=== PATIENT | female | born 1960 | race Caucasian/White ===

== ENCOUNTER 2024-07-09 02:05 | Observation (INO) | payer BC, SELFPAY ==
[2024-07-09] VITALS (24 sets, daily range): BP systolic 84–150; BP diastolic 38–98; PULSE 69–105; RESP 13–93; TEMP 36.7–37.1; O2SAT 89–100; BMI 24.3
--- NOTE | 2024-07-09 02:11 | EDNOTE_ITS ---
ED Dizzyness RME/HPI General Chief Complaint: Dizziness Stated Complaint: NAUSEA/VOMITING Time Seen by Provider: 07/09/24 02:11 Arrival date/time: 07/09/24 02:05 RME / HPI RME / HPI Narrative: Dr. Tolbert?s Main ED Evaluation: 63yo female FIOR from home presents to the ED for a chief complaint of dizziness x 1999. Per EMS, patient just got back from [place] at 1999 and has been having motion sickness ever since, reporting it w orsens with movement. Patient endorses having persistent N/V. She has had a decreased appetite for the last one day. She denies any difficulty speaking, difficulty ambulating, numbness, tingling or any other associated symptoms. Related Data Home Medications ?Medication ?Instructions ?Recorded ?Confirmed alprazolam 1 mg tablet 1 mg PO DAILY PRN Anxiety 07/09/24 07/09/24 buspirone 15 mg tablet 15 mg PO HS 07/09/24 07/09/24 Previous Rx's ?Medication ?Instructions ?Recorded alprazolam 0.5 mg tablet 0.5 mg PO BID PRN anxiety #6 tabs 07/10/24 scopolamine base 1 mg over 3 days 1 mg topical Q3D #24 ea 07/10/24 transdermal patch Allergies Allergy/AdvReac Type Severity Reaction Status Date / Time codeine Allergy Verified 03/23/23 08:11 Review of Systems Review of Systems Systems Reviewed: All systems reviewed, normal except as documented Past Medical History Past Medical History CARDIAC: Negative Cardiac Disorders or Congestive Heart Failure RESPIRATORY: Negative Chronic Obstructive Pulmonary Disease (COPD) or Asthma GENITOURINARY: Negative Renal Disease ENDOCRINE: Negative Diabetes Mellitus Type 1 or Diabetes Mellitus Type 2 HEMATOLOGIC: Negative Sickle Cell Disease OTHER HISTORY: Negative Blood Transfusions or Anesthesia Reactions Social History SMOKING STATUS: Unknown if ever smoked ED Exam Narrative Physical exam: GENERAL APPEARANCE: alert and oriented x 4, well-developed, well-nourished, no acute distress VITALS: All vitals were reviewed and the pulse ox is 100% on room air, which is normal according to my interpretation. HEENT: Normocephalic, atraumatic; pupils equal, round, reactive to light; EOMI;right horizontal nystagmus that worsens with positional changes; mucous membranes pink, moist; oropharynx clear NECK: Supple LUNGS: CTABL; no wheezes, no rales, no rhonchi HEART: Regular rate, regular rhythm; normal S1, S2; no murmurs ABDOMEN: non distended; normal BS; soft, no tenderness, no guarding, no rebound; no masses, no organomegaly, no hernia BACK: no CVA tenderness EXTREMITIES: atraumatic; no edema NEUROLOGIC: awake; alert and oriented x4; cranial nerves II-XII grossly intact; no focal sensory or motor deficits PSYCHIATRIC: appropriate mood and affect SKIN: warm, dry, normal color; no rashes Course Course Course Narrative: CXR is ordered for determining the etiology of chest pain. Quality Measures none Orders Category Date Time Status Transportation Security Officer STAT Care 07/09/24 02:11 Completed Continuous Pulse Oximetry ONCE Care 07/09/24 02:11 Completed EKG (ED ONLY) *Do not use* NOW Care 07/09/24 02:11 Completed EKG (ED ONLY) *Do not use* NOW Care 07/09/24 03:43 Completed EKG (ED ONLY) *Do not use* NOW Care 07/09/24 10:27 Completed Insert IV STAT Care 07/09/24 02:11 Completed EKG (ED Only) Stat Exams 07/09/24 02:11 Draft EKG (ED Only) Stat Exams 07/09/24 03:43 Ordered EKG (ED Only) Stat Exams 07/09/24 10:27 Ordered XR chest 1V portable Stat Exams 07/09/24 02:46 Completed B-Type Natriuretic Peptide Stat Lab 07/09/24 02:20 Completed CBC Stat Lab 07/09/24 02:20 Completed Comprehensive Metabolic Panel Stat Lab 07/09/24 02:20 Completed Drug Screen,Urine Stat Lab 07/10/24 04:00 Completed Lipase Stat Lab 07/09/24 02:20 Completed Magnesium Stat Lab 07/09/24 02:20 Completed Troponin I Stat Lab 07/09/24 02:20 Completed LORazepam [Ativan Inj] Med 07/09/24 02:50 Discontinued 1 mg IVP X1 ONE LORazepam [Ativan Inj] Med 07/09/24 03:17 Discontinued 1 mg IVP X1 ONE LORazepam [Ativan Inj] Med 07/09/24 10:28 Discontinued 2 mg IM X1 ONE LORazepam [Ativan Inj] Med 07/09/24 10:30 Discontinued 2 mg IVP X1 ONE Magnesium Sulfate 2 GM Ivpb [Magnesium Sulfate Ivpb] Med 07/09/24 02:46 Discontinued 2 gm in 50 ml IV X1 Meclizine HCl [Antivert] Med 07/09/24 04:23 Discontinued 50 mg PO X1 ONE Ondansetron Inj [Zofran Inj] Med 07/09/24 02:11 Discontinued 4 mg IV X1 ONE Ondansetron Inj [Zofran Inj] Med 07/09/24 08:48 Discontinued 4 mg IV X1 ONE Ondansetron Inj [Zofran Inj] Med 07/09/24 09:56 Discontinued 4 mg IV X1 ONE POTASSIUM CHL 10 mEq IVPB [Kcl Ivpb] Med 07/09/24 03:43 Discontinued 10 meq in 100 ml IV Q1H Potassium Chloride [K-Dur] Med 07/09/24 10:29 Discontinued 20 meq PO X1 ONE Potassium Chloride [K-Dur] Med 07/09/24 10:29 Discontinued 20 meq PO X1 ONE Sodium Chloride 0.9% 1000 ml [Ns] 1,000 ml Med 07/09/24 02:11 Discontinued IV 999 mls/hr Sodium Chloride 0.9% 1000 ml [Ns] 1,000 ml Med 07/09/24 10:27 Discontinued IV 999 mls/hr Vital Signs Vital signs: Vital Signs Pulse Rate 73 07/09/24 02:09 Respiratory Rate 24 H 07/09/24 02:09 Blood Pressure 150/70 H 07/09/24 02:09 Pulse Oximetry (%) 100 07/09/24 02:09 Oxygen Delivery Method Room Air 07/09/24 02:09 Dizziness MDM Narrative MDM Narrative:: Scribe Attestation: 07/09/24 Sussy Cervantes am scribing for and in the presence of Dr. Tolbert. Although the patient is actively vomiting, the patient has a QT prolongation on her EKG, so I am unable to order antiemetics. 2g of Magnesium Sulfate ordered. Will repeat EKG and re-assess. After the additional 1mg Ativan, patient's symptoms resolved. Patient given 50mg meclizine. Will continue to observe the patient. Patient data External records reviewed:: [facility] previous records (Per chart review, patient was admitted here on 03/23/23 for hypokalemia; she was noted to be in torsades DePointes during that admission. ) Clinical information provided by:: patient and EMS Social determinants that could affect healthcare access:: none Patient has the following chronic illnesses:: none How is presenting disease/condition affected by chronic disease/condition?: no chronic disease Evaluation data The following diagnostics were reviewed and interpreted by me:: lab results, radiology exam(s) and EKG tracing(s) Lab and/or radiology exams considered but not ordered:: none Interpretation Summary: WBC count is elevated at 12.5, Potassium is low at 3.0, troponin is normal, BNP is normal, Magnesium is normal, CXR shows normal cardiac silhouette, normal sharp diaphragmatic edge, no infiltrates, normal costophrenic angles, according to my interpretation. EKG done at 0230, NSR, rate of 69, frequent PVCs, Q waves in V1 and V2, QRS: 13, QTc: 468, no STEMI, according to my interpretation. Repeat EKG done at 0441, NSR, rate of 74, normal axis, Q waves in aVL, V1, and V2, no ectopy, QRS: 123, QTc: 448, no acute ischemia, according to my interpretation. Medications / Prescriptions Medications or Prescriptions considered but not ordered:: none Medication administrations:: Medication Administration History Discontinued Medications Acetaminophen (Acetaminophen 325 Mg Tablet) 650 mg PO Q6H PRN PRN Reason: Fever >101.5 or pain 1-3 Stop: 08/08/24 13:52 Last Admin: 07/10/24 10:21 Dose: 650 mg Documented By: ISIDRO Buspirone HCl (Buspirone Hcl 5 Mg Tablet) 15 mg PO QDAY [facility] Stop: 08/09/24 08:59 Last Admin: 07/10/24 08:29 Dose: 15 mg Documented By: ISIDRO Enoxaparin Sodium (Enoxaparin Sod Inj 40 Mg/0.4 Ml Syringe) 40 mg SC QDAY [facility] Stop: 07/24/24 08:59 Last Admin: 07/10/24 08:30 Dose: Not Given Documented By: SG Non-Admin Reason: Patient Refused Sodium Chloride (Ns) 1,000 mls @ 999 mls/hr IV .Q1H1M ONE Stop: 07/09/24 03:11 Last Infusion: 07/09/24 03:24 Dose: Infused Documented By: Admin: 07/09/24 02:21 Dose: 999 mls/hr Documented By: TC Magnesium Sulfate (Magnesium Sulfate Ivpb) 2 gm in 50 mls @ 25 mls/hr IV X1 ONE Stop: 07/09/24 04:45 Last Infusion: 07/09/24 04:47 Dose: Infused Documented By: Admin: 07/09/24 02:51 Dose: 25 mls/hr Documented By: ROXIE Potassium Chloride (Kcl Ivpb) 10 meq in 100 mls @ 100 mls/hr IV Q1H JANET Stop: 07/09/24 05:42 Last Infusion: 07/09/24 07:04 Dose: Infused Documented By: Admin: 07/09/24 05:40 Dose: 100 mls/hr Documented By: Infusion: 07/09/24 05:39 Dose: Infused Documented By: Admin: 07/09/24 04:42 Dose: 100 mls/hr Documented By: ROXIE Sodium Chloride (Ns) 1,000 mls @ 999 mls/hr IV .Q1H1M ONE Stop: 07/09/24 11:27 Last Infusion: 07/09/24 13:00 Dose: Infused Documented By: Admin: 07/09/24 10:59 Dose: 999 mls/hr Documented By: NEREIDA Lactated Ringer's (Lactated Ringers) 1,000 mls @ 75 mls/hr IV .[id number] [facility] Stop: 07/10/24 13:59 Last Admin: 07/10/24 05:35 Dose: 75 mls/hr Documented By: Infusion: 07/10/24 04:10 Dose: Infused Documented By: Admin: 07/09/24 14:50 Dose: 75 mls/hr Documented By: ISIDRO Lorazepam (Lorazepam 2 Mg/Ml Vial) 1 mg IVP X1 ONE Stop: 07/09/24 02:51 Last Admin: 07/09/24 02:54 Dose: 1 mg Documented By: ROXIE Lorazepam (Lorazepam 2 Mg/Ml Vial) 1 mg IVP X1 ONE Stop: 07/09/24 03:18 Last Admin: 07/09/24 03:20 Dose: 1 mg Documented By: LASHELL Lorazepam (Lorazepam 2 Mg/Ml Vial) 2 mg IM X1 ONE Stop: 07/09/24 10:29 Last Admin: 07/09/24 10:29 Dose: Not Given Documented By: NEREIDA Non-Admin Reason: Cancelled by Provider Lorazepam (Lorazepam 2 Mg/Ml Vial) 2 mg IVP X1 ONE Stop: 07/09/24 10:31 Last Admin: 07/09/24 11:02 Dose: 2 mg Documented By: GM Lorazepam (Lorazepam 0.5 Mg Tablet) 0.5 mg PO X1 ONE Stop: 07/09/24 21:31 Last Admin: 07/09/24 21:55 Dose: 0.5 mg Documented By: MRAbhay Meclizine HCl (Meclizine Hcl 25 Mg Tablet) 50 mg PO X1 ONE Stop: 07/09/24 04:24 Last Admin: 07/09/24 04:42 Dose: 50 mg Documented By: ROXIE Melatonin (Melatonin 3 Mg Tablet) 3 mg PO HS [facility] Stop: 08/08/24 20:59 Last Admin: 07/10/24 02:18 Dose: Not Given Documented By: SEVERO Non-Admin Reason: Patient Refused Ondansetron HCl (Ondansetron Inj 2 Mg/Ml Inj 2 Ml) 4 mg IV X1 ONE; Protocol Stop: 07/09/24 02:12 Last Admin: 07/09/24 02:20 Dose: 4 mg Documented By: LASHELL Ondansetron HCl (Ondansetron Inj 2 Mg/Ml Inj 2 Ml) 4 mg IV X1 ONE; Protocol Stop: 07/09/24 08:49 Last Admin: 07/09/24 08:51 Dose: 4 mg Documented By: NEREIDA Ondansetron HCl (Ondansetron Inj 2 Mg/Ml Inj 2 Ml) 4 mg IV X1 ONE; Protocol Stop: 07/09/24 09:57 Last Admin: 07/09/24 10:00 Dose: 4 mg Documented By: NEREIDA Pantoprazole Sodium (Pantoprazole Inj 40 Mg Vial) 40 mg IV QDAY [facility] Stop: 08/09/24 08:59 Last Admin: 07/10/24 08:29 Dose: 40 mg Documented By: SG Potassium Chloride (Potassium Chloride 20 Meq Tabcr) 20 meq PO X1 ONE Stop: 07/09/24 10:30 Last Admin: 07/09/24 10:31 Dose: Not Given Documented By: GM Non-Admin Reason: Duplicate Medication on eMAR Potassium Chloride (Potassium Chloride 20 Meq Tabcr) 20 meq PO X1 ONE Stop: 07/09/24 10:30 Last Admin: 07/09/24 11:02 Dose: 20 meq Documented By: GM Potassium Phos/Sodium Phos (Naph,[facility] 1 Packet (1.5 Gm)) 1 packet PO X1 ONE Stop: 07/10/24 08:12 Last Admin: 07/10/24 08:29 Dose: 1 packet Documented By: SG Scopolamine (Scopolamine 1 Mg Tdsy) 1 mg TOP Q3D JANET Stop: 08/08/24 13:59 Last Admin: 07/09/24 14:50 Dose: 1 mg Documented By: SG see above Consultations Consultation(s) initiated? (list below): No Diagnosis Dizziness Differential Diagnosis: other (peripheral vertigo, central vertigo, electrolyte abnormality, arrhythmia) Most likely diagnosis given after review of the tests above:: final dx pending at sign out. Admission Indicated Admission indicated?: not indicated Admission Request Was there a request for admission?: No Disposition Plan Disposition Plan: other (specify) (Signed out to Dr. Ramos at 0600 pending re- evaluation.) Critical Care Time Critical Care Time Critical Care Time: Yes Total Critical Care Time (min.): 45 Attestation: The high probability of sudden, clinically significant deterioration in the patient?s condition required the highest level of my preparedness to intervene urgently. The services I provided to this patient were to treat and/or prevent clinically significant deterioration. Services included the following: chart data review, reviewing nursing notes and/or old charts, documentation time, environmental remediation consultant collaboration regarding findings and treatment options, medication orders and management, direct patient care, vital sign assessments and ordering, interpreting and reviewing diagnostic studies and lab tests. Aggregate critical care time includes only time during which I was engaged in work directly related to the patient?s care, as described above, whether at bedside or elsewhere in the Emergency Department. It did not include time spent performing other reported procedures or the services of residents, students, nurses or physician assistants. Discharge Plan Plan Patient Disposition: Admit Acute Care w/in Hospital Problem List Clinical Impression: Food poisoning, Vertigo Patient/Caregiver Discharge Instructions Discharge Activity: activity as tolerated
--- NOTE | 2024-07-09 02:11 | EKG_ITS ---
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: : 1960 Requested By: James Augustin Order Number: [id number] Reading MD: James Augustin Measurements Intervals [place] Rate: 69 P: 72 SC: 168 QRS: 62 QRSD: 130 T: -9 QT: 448 QTc: 483 Interpretive Statements SINUS RHYTHM WITH FREQUENT VENTRICULAR PREMATURE COMPLEXES SEPTAL MYOCARDIAL INFARCTION , OF INDETERMINATE AGE [40+ ms Q WAVE IN V1/V2] MODERATE T-WAVE ABNORMALITY, CONSIDER INFERIOR ISCHEMIA [-0.1+ mV T WAVE IN II/aVF] Compared to ECG 03/24/2023 17:35:09 Ventricular premature complex(es) now present Myocardial infarct finding still present T-wave abnormality still present Possible ischemia still present /store/S0/[id number]/ecg/[id number].pdf
[2024-07-09] MEDS: ONDANSETRON INJ 2 MG/ML INJ 2 ML 4 MG IV ×3 (02:20→10:00)
[2024-07-09] MEDS: SODIUM CHLORIDE 0.9% 1000 ML 1,000 ML 999 ML IV ×2 (02:21→10:59)
--- NOTE | 2024-07-09 02:46 | XR_ITS ---
Examination: AP chest single view Technique: AP portable upright chest single view Exam date and time: July 09, 2024 0254 hrs. Comparison 03/23/2023 Indications: Onset chest pain today. Findings: Normal heart size Lungs are clear. The osseous structures are intact The film is lordotic Impression: No pneumonia or pulmonary edema
[2024-07-09 02:49] LABS: Basophils # (Auto) 0.1 Thou/mm3 (0.0-0.2); Basophils % (Auto) 1 % (0-2.5); Eosinophils % (Auto) 0 % (0-10); Hemoglobin 13.4 g/dL (12.0-16.0); Immature Granulocytes % (Auto) 0 % (0-0); Immature Granulocytes Auto 0.05 Thou/mm3 (0.00-0.00); Lymphocytes # (Auto) 1.6 Thou/mm3 (1.0-4.8); Lymphocytes % (Auto) 13 % (10-50); Mean Corpuscular HGB Conc 33.5 g/dl (31.0-37.0); Mean Corpuscular Volume 84 fL (80-100); Monocytes # (Auto) 0.4 Thou/mm3 (0.0-0.8); Monocytes % (Auto) 3 % (0-12); Neutrophils # (Auto) 10.3 Thou/mm3 (1.8-7.7); Neutrophils % (Auto) 82 % (37-80); Nucleated Red Blood Cell % 0 /100 WBC (0); Platelet Count 237 Thou/mm3 (140-440); RDW Standard Deviation 39.6 fL (36.4-46.3); Red Blood Count 4.79 Miln/mm3 (4.00-5.20); White Blood Count 12.5 Thou/mm3 (3.6-11.0)
[2024-07-09] MEDS: Magnesium Sulfate 2 GM Ivpb 2 GM/50 ML BAG IV (02:51)
[2024-07-09] MEDS: LORazepam 2 MG/ML VIAL 1 MG IVP ×2 (02:54→03:20)
[2024-07-09 03:08] LABS: Alanine Aminotransferase 10 U/L (10-49); Albumin, Serum 4.9 gm/dL (3.4-4.8); Alkaline Phosphatase 61 U/L (46-116); Anion Gap 12 (7-16); Aspartate Amino Transferase 15 U/L (0-34); BUN/Creatinine Ratio 18 Ratio (12-20); Bilirubin,Total 0.5 mg/dL (0.3-1.2); Blood Urea Nitrogen 14 mg/dL (9-23); Calcium 9.8 mg/dL (8.3-10.6); Calcium (Corrected) 9.8 mg/dL (8.5-10.1); Chloride 107 mMol/L (98-107); Creatinine (Component) 0.8 mg/dL (0.6-1.3); Estimated Creatinine Clearance 78.8 mL/min (>60); Globulin 2.4 gm/dL (2.3-3.5); Glucose 166 mg/dL (74-106); Lipase 32 U/L (12-53); Osmolality,Calculated 287 (275-295); Sodium 142 mMol/L (136-145); Total Protein 7.3 gm/dL (5.7-8.2); Troponin I < 0.020 ng/mL (0.0-0.045); eGFR > 60 See Note
[2024-07-09 03:11] LABS: B-Type Natriuretic Peptide 44 pg/mL (0-100)
[2024-07-09] MEDS: MECLIZINE HCL 25 MG TABLET 50 MG PO (04:42)
[2024-07-09] MEDS: POTASSIUM CHL 10 mEq IVPB 10 MEQ/100 ML BAG 100 MEQ IV ×2 (04:42→05:40)
--- NOTE | 2024-07-09 07:05 | PC.NURSE ---
REPORT RECEIVED AT THIS TIME; PER REPORT, PT COMING IN FOR SEVERE N/V THAT STARTED AFTER THEIR ROAD TRIP TO THE [place]; PT HAS MOTION SICKNESS. UPON ARRIVAL, PT'S POTASSIUM WAS 3.0 SO WE CORRECTED THAT; PT ALSO HAS HX OF TORSADES SO SHE GIVEN MAGNESIUM TO PREVENT THAT EVEN THOUGH INITIAL MAG LEVELS WERE WNL; EKG DID SHOW PROLONGED SG; PT ALSO GIVEN ATIVAN FOR ANXIETY. PT BEGAN TO DESAT TO 88% ON RA AFTER ATIVAN, SO I PUT HER ON 2L OF NC, SHE''S BEEN SATTING WELL EVER SINCE. PT CONNECTED TO MONITORS AT THIS TIME.
--- NOTE | 2024-07-09 07:34 | EDNOTE_ITS ---
Emergency Room Addendum Addendum Narrative: 0600: Care assumed by previous shift provider. Past medical, surgical, social and family history reviewed. Vitals and home medications reviewed. Results and treatment plan discussed. I will assume the care of the patient at this time and will follow the patient, pending final disposition. 0800: Patient received 2 rounds of Zofran, Ativan, IV fluids, magnesium and potassium prior to my encounter. At rest she states she feels improved but has not attempted ambulation. She was not able to ambulate beyond nursing home down the ER hallway and returned to her bed with resumption of her nausea vomiting. Reviewing her labs she does have a mildly low potassium, borderline prolonged QRS and QTc. Given her persistent refractory nausea, her tendency for catastrophic electrolyte abnormalities (review of the EMR records shows her visit with me where she was admitted to the ICU with torsades de points and shock) we will admit for observation for intractable nausea and vomiting.
--- NOTE | 2024-07-09 08:38 | PC.NURSE ---
Addendum entered by Cammy Cooper RN 07/09/24 08:40: @0840- RN at bedside with pt; pt now starting to vomit; Dr. Ramos made aware pt did not pass PO challenge. Original Note: Pt ambulated to restroom independently with no issues; pt exhibited strong & steady gait. Pt given ice water for PO challenge; pt drank water at this time and denies N/V. Pt passed ambulation and PO challenge.
[2024-07-09] MEDS: LORazepam 2 MG/ML VIAL IVP (11:02)
[2024-07-09] MEDS: POTASSIUM CHLORIDE 20 mEq TABCR PO (11:02)
--- NOTE | 2024-07-09 12:09 | PC.CC ---
Pt April Van is a 63 yr old female admitted to hospitalist services for hx of Torsades. ASW met with pt at bedside to complete initial assessment. At time of encounter pt is noted to be alert and oriented to person, place and situation. Pt expressed understanding admission order. Pt able to confirm all demographic information. Pt is from home [address] [place] [address], where she lives with her Talha Bailey [phone], whom pt designates as her surrogate DM. Pt is gainfully employed at this time. Pt is independent with ambulation and with completing her ADLs. P does not require supplemental O2 in the home. Pt is not diabetic and is not on dialysis. Pt is followed by [facility] for primary care. At D/c pt reports she will return home with her providing transport. Advance Directive was not discussed at this time.
[2024-07-09] MEDS: RINGERS LACTATED 1000 ML 1,000 ML 75 ML IV (14:50)
[2024-07-09] MEDS: SCOPOLAMINE 1 MG TDSY TOP (14:50)
--- NOTE | 2024-07-09 15:56 | ESHP_ITS ---
<Statement entered by Tushar Barrow MD - 07/09/24 21:14> Patient was seen and examined at bedside. I agree on most of the assessment and plan on this note - Patient's plan and care discussed with my attending, Dr. Osmel Barrow MD Internal Medicine PGY-2 Documentation for date of: 07/09/24 HPI History of Present Illness History of present illness: April is a 63-year-old female with a past medical history of Torsades, tubal ligation, breast lumpectomy, and motion sickness who comes for an evaluation of intractable nausea and vomiting with associated diarrhea, onset of traveling prior to arrival. Patient reports that she was recently in [place] and had driven there. She reports that on her way back to [place] she was concerned with motion sickness, she decided to check her phone and then started to feel nauseous and began to vomit described as non-bloody and bilious. Patient reports that her nausea vomiting is worse with moving. Says that she has a history of motion sickness and says she had to be hospitalized for similar symptoms previously and her heart went into torsades and had to be shocked and was in the ICU. Says while she was in [place] she ate some chicken strips that she purchased, but did not eat anything out of her normal diet. Denies anyone around her feeling sick like this. Denies other sick contacts. Denies any syncope, headache, chest pain, shortness of breath, numbness, tingling, confusion. ED course: She came to the ED with vitals of a heart rate of 73, respiratory rate 24, blood pressure 150/70, satting 100% on room air and was afebrile. She was worked up was found to have a sodium of 142, potassium 3.0, BUN/creatinine of 14 and 0.8 respectively, blood glucose of 166, white count of 12.5, hemoglobin 13.4, anion gap of 12, mag is 2. Chest x-ray was done which showed no pulmonary edema or pneumonia. EKG was done and showed NSR, rate of 69 and QTc of 468. She was given 2 mg of mag. Patient cannot get oral antiemetics initially and was given magnesium to see if QTc would improve. Patient was then given 12 mg of Zofran (3 separate occasions, Ativan initially was given which did not help patient's nausea and vomiting), meclizine 50 x 1, 40 mill equivalents of potassium, 2 L of normal saline, and 6 mg of Ativan. Medicine was consulted and patient was admitted to floors. Past medical history: As above Surgeries: Tubal ligation and breast lumpectomy Allergies: Codeine Meds: BuSpar Social history: Former smoker, occasional alcohol Review of Systems Review of Systems Narrative Review of Systems: 12 point ROS reviewed and is otherwise negative unless directly stated in the HPI Exam Vital Signs Temp Pulse Resp BP Pulse Ox O2 Del Method O2 Flow Rate 98.7 F 80 15 105/51 L 99 Nasal Cannula 2 07/09/24 12:00 07/09/24 15:42 07/09/24 12:00 07/09/24 12:00 07/09/24 12:00 07/09/24 12:00 07/09/24 12:00 Narrative Exam General: AAOx3, lethargic HEENT: Dry mucous membranes, conjunctiva clear, EOMI, PERRLA, Cardiovascular: S1, S2, radial pulses +2 bilat, RRR Pulmonary: CTAB bilat no cough, no wheezing GI: No tenderness to light or deep palpitation, no guarding, rigidity, rebound tenderness or distension Extremities: No presence of trace or pitting edema in lower extremities bilaterally, dorsalis pedis pulses +2 bilaterally Neuro: AAOx3, no focal motor or sensory deficits in the UE or LE bilat Psych: Cooperative Results: Labs 07/10/24 05:10 07/10/24 05:10 Labs: Short CBC 07/09/24 Range/Units 02:20 WBC 12.5 H (3.6-11.0) Thou/mm3 Hgb 13.4 (12.0-16.0) g/dL Hct 40.0 (36.0-46.0) % Plt Count 237 (140-440) Thou/mm3 BMP 07/09/24 02:20 Sodium 142 Potassium 3.0 L Chloride 107 Carbon Dioxide 23.0 BUN 14 Creatinine 0.8 Glucose 166 H Calcium 9.8 Cardiac Enzymes 07/09/24 Range/Units 02:20 Troponin I < 0.020 (0.0-0.045) ng/mL Liver Function 07/09/24 Range/Units 02:20 Total Bilirubin 0.5 (0.3-1.2) mg/dL AST 15 (0-34) U/L ALT 10 (10-49) U/L Alkaline Phosphatase 61 (46-116) U/L Albumin 4.9 H (3.4-4.8) gm/dL Quality Measures Quality Measures none Medications Home Medications and Allergies Home Medications ?Medication ?Instructions ?Recorded ?Confirmed ?Type alprazolam 1 mg tablet 1 mg PO DAILY PRN Anxiety 07/09/24 07/09/24 History buspirone 15 mg tablet 15 mg PO HS 07/09/24 07/09/24 History Allergies Allergy/AdvReac Type Severity Reaction Status Date / Time codeine Allergy Verified 03/23/23 08:11 Visit Medications Acetaminophen (Acetaminophen 325 Mg Tablet) 650 mg PO Q6H PRN PRN Reason: Fever >101.5 or pain 1-3 Stop: 08/08/24 13:52 Buspirone HCl (Buspirone Hcl 5 Mg Tablet) 15 mg PO QDAY JANET Stop: 08/09/24 08:59 Enoxaparin Sodium (Enoxaparin Sod Inj 40 Mg/0.4 Ml Syringe) 40 mg SC QDAY JANET Stop: 07/24/24 08:59 Lactated Ringer's (Lactated Ringers) 1,000 mls @ 75 mls/hr IV .[id number] JANET Stop: 07/10/24 13:59 Last Admin: 07/09/24 14:50 Dose: 75 mls/hr Melatonin (Melatonin 3 Mg Tablet) 3 mg PO HS JANET Stop: 08/08/24 20:59 Scopolamine (Scopolamine 1 Mg Tdsy) 1 mg TOP Q3D JANET Stop: 08/08/24 13:59 Last Admin: 07/09/24 14:50 Dose: 1 mg Discontinued Medications Sodium Chloride (Ns) 1,000 mls @ 999 mls/hr IV .Q1H1M ONE Stop: 07/09/24 03:11 Last Infusion: 07/09/24 03:24 Dose: Infused Magnesium Sulfate (Magnesium Sulfate Ivpb) 2 gm in 50 mls @ 25 mls/hr IV X1 ONE Stop: 07/09/24 04:45 Last Infusion: 07/09/24 04:47 Dose: Infused Potassium Chloride (Kcl Ivpb) 10 meq in 100 mls @ 100 mls/hr IV Q1H JANET Stop: 07/09/24 05:42 Last Infusion: 07/09/24 07:04 Dose: Infused Sodium Chloride (Ns) 1,000 mls @ 999 mls/hr IV .Q1H1M ONE Stop: 07/09/24 11:27 Last Infusion: 07/09/24 13:00 Dose: Infused Lorazepam (Lorazepam 2 Mg/Ml Vial) 1 mg IVP X1 ONE Stop: 07/09/24 02:51 Last Admin: 07/09/24 02:54 Dose: 1 mg Lorazepam (Lorazepam 2 Mg/Ml Vial) 1 mg IVP X1 ONE Stop: 07/09/24 03:18 Last Admin: 07/09/24 03:20 Dose: 1 mg Lorazepam (Lorazepam 2 Mg/Ml Vial) 2 mg IM X1 ONE Stop: 07/09/24 10:29 Last Admin: 07/09/24 10:29 Dose: Not Given Lorazepam (Lorazepam 2 Mg/Ml Vial) 2 mg IVP X1 ONE Stop: 07/09/24 10:31 Last Admin: 07/09/24 11:02 Dose: 2 mg Meclizine HCl (Meclizine Hcl 25 Mg Tablet) 50 mg PO X1 ONE Stop: 07/09/24 04:24 Last Admin: 07/09/24 04:42 Dose: 50 mg Ondansetron HCl (Ondansetron Inj 2 Mg/Ml Inj 2 Ml) 4 mg IV X1 ONE; Protocol Stop: 07/09/24 02:12 Last Admin: 07/09/24 02:20 Dose: 4 mg Ondansetron HCl (Ondansetron Inj 2 Mg/Ml Inj 2 Ml) 4 mg IV X1 ONE; Protocol Stop: 07/09/24 08:49 Last Admin: 07/09/24 08:51 Dose: 4 mg Ondansetron HCl (Ondansetron Inj 2 Mg/Ml Inj 2 Ml) 4 mg IV X1 ONE; Protocol Stop: 07/09/24 09:57 Last Admin: 07/09/24 10:00 Dose: 4 mg Potassium Chloride (Potassium Chloride 20 Meq Tabcr) 20 meq PO X1 ONE Stop: 07/09/24 10:30 Last Admin: 07/09/24 10:31 Dose: Not Given Potassium Chloride (Potassium Chloride 20 Meq Tabcr) 20 meq PO X1 ONE Stop: 07/09/24 10:30 Last Admin: 07/09/24 11:02 Dose: 20 meq Assessment & Plan Plan Assessment April is a 63-year-old female with a past medical history of Torsades, tubal ligation, breast lumpectomy, and motion sickness who comes for an evaluation of intractable nausea and vomiting with associated diarrhea, onset of traveling prior to arrival. #Intractable nausea and vomiting #Diarrhea DDx: Motion sickness, gastroenteritis, infectious, cannabis hyperemesis syndrome Patient with history of known sickness, symptoms presented prior to arrival as she was traveling from [place] Patient was getting to the ICU for similar symptoms in addition to torsades Patient does have history of marijuana seen in UDS and previous admission Patient did report that she ate some food in [place] that could have predisposed her to infection Due to patient's QTc, we will avoid QTc prolonging antiemetics Plan: ?LR 75 cc/hour ?N.p.o. ?Scopolamine patch ?Stool culture, ova and parasite. ?Giardia ?Urine drug screen #History of torsades de points #History of prolonged QTc Patient was hospitalized in ICU requiring shock due to similar symptoms on previous admission Current QTc 468 Was given 12 mg of Zofran in the ED Plan: ?Telemetry ?Keep mag and potassium above 2 and 4 respectively ?Avoid QTc prolonging agents ?As above #Electrolyte derangements secondary to #GI losses #Hypokalemia Plan: ?LR 75 cc/hour ? Repeat renal panel at 7 PM ?Trend magnesium and potassium and other electrolytes very closely due to history of torsade ?CMP ?Replete as needed ?As above #History of anxiety Plan: ?Resumed home BuSpar #Health Maintenance Disposition: Telemetry DVT prophylaxis: Lovenox GI prophylaxis: Protonix Diet: N.p.o. CODE STATUS: Full Patient seen and care discussed with my senior resident, Dr. Barrow, and my attending physician, Dr. Osmel Sullivan, PGY-1 Attending Provider Attestation/Addendum I have examined the patient, reviewed labs and imaging findings, discussed the case with the resident(s), and reviewed entered orders. I agree with the plan of care as outlined in this note. Patient will be admitted for intractable nausea and vomiting in the setting of viral gastroenteritis versus motion sickness. Admit to telemetry given history torsades de point and monitor QTc. Continue IV fluids and repeat hematology panel in AM. As needed antiemetics. Patient updated on the plan and in agreement. Dr. Bolivar
[2024-07-09 20:04] LABS: Anion Gap 7 (7-16); BUN/Creatinine Ratio 10 Ratio (12-20); Blood Urea Nitrogen 8 mg/dL (9-23); Calcium 9.4 mg/dL (8.3-10.6); Carbon Dioxide 26.2 mMol/L (20.0-31.0); Chloride 110 mMol/L (98-107); Creatinine (Component) 0.8 mg/dL (0.6-1.3); Estimated Creatinine Clearance 78.8 mL/min (>60); Glucose 104 mg/dL (74-106); Magnesium 2.1 mg/dL (1.6-2.6); Osmolality,Calculated 283 (275-295); Phosphorous 2.2 mg/dL (2.4-5.1); Potassium 4.2 mMol/L (3.4-5.1); Sodium 143 mMol/L (136-145); eGFR > 60 See Note
[2024-07-09] MEDS: LORazepam 0.5 MG TABLET PO (21:55)
[2024-07-10] VITALS: BP 103/56; PULSE 65; PULSE 71; RESP 18; TEMP 36.4; O2SAT 93
[2024-07-10 04:00] VITALS: BP 106/66; PULSE 60; PULSE 80; RESP 18; TEMP 36.6; O2SAT 95
[2024-07-10] MEDS: RINGERS LACTATED 1000 ML 1,000 ML 75 ML IV (05:35)
[2024-07-10 06:00] VITALS: BMI 24.5
[2024-07-10 06:16] LABS: Basophils % (Auto) 1 % (0-2.5); Eosinophils % (Auto) 1 % (0-10); Hematocrit 35.1 % (36.0-46.0); Hemoglobin 11.6 g/dL (12.0-16.0); Immature Granulocytes % (Auto) 0 % (0-0); Immature Granulocytes Auto 0.02 Thou/mm3 (0.00-0.00); Lymphocytes # (Auto) 2.3 Thou/mm3 (1.0-4.8); Lymphocytes % (Auto) 35 % (10-50); Mean Corpuscular Hemoglobin 28.5 pg (25.0-35.0); Mean Corpuscular Volume 86 fL (80-100); Monocytes # (Auto) 0.4 Thou/mm3 (0.0-0.8); Monocytes % (Auto) 7 % (0-12); Neutrophils # (Auto) 3.7 Thou/mm3 (1.8-7.7); Neutrophils % (Auto) 57 % (37-80); Nucleated Red Blood Cell % 0 /100 WBC (0); Platelet Count 191 Thou/mm3 (140-440); RDW Standard Deviation 41.1 fL (36.4-46.3); Red Blood Count 4.07 Miln/mm3 (4.00-5.20); White Blood Count 6.5 Thou/mm3 (3.6-11.0)
[2024-07-10 06:37] LABS: Amphetamine/Methamp Scrn,U Negative (Negative); Barbiturate Screen,Urine Negative (Negative); Benzodiazepines Screen,Urine Negative (Negative); Benzoylecgonine Screen, Ur Negative (Negative); Fentanyl Screen,Urine Negative (Negative); Opiate Screen,Urine Negative (Negative); THC Screen,Urine Positive (Negative)
[2024-07-10 06:39] LABS: Alanine Aminotransferase 9 U/L (10-49); Albumin, Serum 3.8 gm/dL (3.4-4.8); Alkaline Phosphatase 47 U/L (46-116); Anion Gap 9 (7-16); Aspartate Amino Transferase 15 U/L (0-34); BUN/Creatinine Ratio 10 Ratio (12-20); Bilirubin,Direct 0.2 mg/dL (0.0-0.3); Bilirubin,Total 0.6 mg/dL (0.3-1.2); Blood Urea Nitrogen 8 mg/dL (9-23); Calcium 8.3 mg/dL (8.3-10.6); Calcium (Corrected) 8.5 mg/dL (8.5-10.1); Carbon Dioxide 25.3 mMol/L (20.0-31.0); Chloride 108 mMol/L (98-107); Creatinine (Component) 0.8 mg/dL (0.6-1.3); Estimated Creatinine Clearance 78.8 mL/min (>60); Globulin 1.9 gm/dL (2.3-3.5); Glucose 90 mg/dL (74-106); Osmolality,Calculated 281 (275-295); Phosphorous 2.1 mg/dL (2.4-5.1); Potassium 3.4 mMol/L (3.4-5.1); Sodium 142 mMol/L (136-145); Thyroid Stimulating Hormone 1.52 uIU/mL (0.55-4.78); Total Protein 5.7 gm/dL (5.7-8.2); eGFR > 60 See Note
[2024-07-10 06:41] LABS: INR 1.1 (0.9-1.3); Partial Thromboplastin Time 24.3 Seconds (22.0-36.0); Prothrombin Time 11.8 Seconds (9.0-12.2)
[2024-07-10 06:47] LABS: Glucose Estimated Average 111 mg/dL (80-131); Hemoglobin A1C 5.5 % Hgb (4.8-6.0)
[2024-07-10 08:00] VITALS: BP 109/61; PULSE 60; PULSE 83; RESP 16; TEMP 36.9; O2SAT 96
[2024-07-10] MEDS: BusPIRone HCL 5 MG TABLET 15 MG PO (08:29)
[2024-07-10] MEDS: NAPH,KPH MBDB 1 PACKET (1.5 GM) PO (08:29)
[2024-07-10] MEDS: PANTOPRAZOLE INJ 40 MG VIAL IV (08:29)
[2024-07-10] MEDS: ACETAMINOPHEN 325 MG TABLET 650 MG PO (10:21)
--- NOTE | 2024-07-10 13:37 | PD.RESDS ---
Planned Discharge Date 07/10/24 DS: Providers Provider Date of admission: 07/09/24 11:33 Primary care physician: Kee Ware MD Admitting Provider: Ajay Bolivar MD Attending Provider on Admission: Ajay Bolivar MD Attending Provider on DC: Jovani Gutiérrez MD Discharging Provider: Jovani Gutiérrez MD DS: Diagnosis Problem List Completed Was Problem List Reviewed/Reconciled?: Yes Hospital Course Hospital Course Hospital course: Ms. Van is a 63-year-old female with past medical history of hospitalization of intractable nausea vomiting leading to a complication of torsades requiring ICU stay with multiple defibrillator shocks, tubal ligation, breast lumpectomy, history of motion sickness who came to [facility] due to intractable nausea and vomiting. Patient was recently traveling with her and was using her iPad during the course of her travels which led to her developing a mild motion sickness that continue to progress. Patient had multiple episodes of vomitus that was nonbilious and due to her previous hospitalization she had extreme anxiety that she may have lead to another episode of torsade requiring life-saving measures so she decided come to [facility]. Patient was admitted for intractable nausea and vomiting and was given high doses of Zofran along with meclizine and scopolamine and Ativan for management of her anxiety and vomiting. Her vomiting improved over the course of 24 hours and she was able to reduce her anxiety as well. Patient was back to baseline health and medically cleared for discharge. She will be sent home on scopolamine patch and 3-day course of alprazolam for management of anxiety. Patient is recommended to follow-up outpatient with PCP to obtain referral for cardiology for further management of prolonged QT interval and history of torsades. Plan for discharge discussed with supervising attending Dr. Bolivar #New Meds Scopolamine patch Alprazolam for 3 days April is a 63-year-old female with a past medical history of Torsades, tubal ligation, breast lumpectomy, and motion sickness who comes for an evaluation of intractable nausea and vomiting with associated diarrhea, onset of traveling prior to arrival. #Intractable nausea and vomiting #Diarrhea DDx: Motion sickness, gastroenteritis, infectious, cannabis hyperemesis syndrome Patient with history of known sickness, symptoms presented prior to arrival as she was traveling from [place] Patient was getting to the ICU for similar symptoms in addition to torsades Patient does have history of marijuana seen in UDS and previous admission Patient did report that she ate some food in [place] that could have predisposed her to infection Due to patient's QTc, we will avoid QTc prolonging antiemetics Plan: ?LR 75 cc/hour ?N.p.o. ?Scopolamine patch ?Stool culture, ova and parasite. ?Giardia ?Urine drug screen #History of torsades de points #History of prolonged QTc Patient was hospitalized in ICU requiring shock due to similar symptoms on previous admission Current QTc 468 Was given 12 mg of Zofran in the ED Plan: ?Telemetry ?Keep mag and potassium above 2 and 4 respectively ?Avoid QTc prolonging agents ?As above #Electrolyte derangements secondary to #GI losses #Hypokalemia Plan: ?LR 75 cc/hour ? Repeat renal panel at 7 PM ?Trend magnesium and potassium and other electrolytes very closely due to history of torsade ?CMP ?Replete as needed ?As above #History of anxiety Plan: ?Resumed home BuSpar #Health Maintenance Disposition: Telemetry DVT prophylaxis: Lovenox GI prophylaxis: Protonix Diet: N.p.o. CODE STATUS: Full Status at Discharge Functional status at discharge: independent ambulation Overall status at discharge: patient is back to baseline Time Spent with Patient Time attestation: Total time spent providing and/or coordinating discharge services: Time spent: Greater than 30 minutes Exam Vital Signs Temp Pulse Resp BP Pulse Ox O2 Del Method O2 Flow Rate 98.5 F 60 16 109/61 96 Room Air 2 07/10/24 08:00 07/10/24 08:00 07/10/24 08:00 07/10/24 08:00 07/10/24 08:00 07/10/24 08:00 07/10/24 08:00 Discharge Plan Plan Patient Disposition: HOME (Self Care) Care Plan Goals: Patient is recommended to follow-up with PCP Patient is being sent home with scopolamine patches as needed for motion sickness Patient is being sent home on a 3-day course of Xanax to be used as needed for anxiety and can further follow-up with primary care physician for further management of anxiety. Prescriptions/Referrals Prescriptions/Med Rec: New scopolamine base 1 mg over 3 days patch 3 day 1 mg topical Q3D Qty: 24 0RF alprazolam 0.5 mg tablet 0.5 mg PO BID PRN (Reason: anxiety) Qty: 6 0RF Continued buspirone 15 mg tablet 15 mg PO HS alprazolam 1 mg tablet 1 mg PO DAILY PRN (Reason: Anxiety) Patient Comments: TAKE 1 TABLET BY MOUTH EVERY DAY, FOR 60 DAYS Referrals: Kee Ware MD [Primary Care Provider] - Patient/Caregiver Discharge Instructions Discharge Activity: activity as tolerated Education Materials: Vertigo Medicine Tx, Vertigo Staying Safe Print Language: Occitan Stand Alone Forms: Ethel Award Info., Patient Portal Info Letter, Work/Release Restrictions Discharge Order Discharge Orders: Discharge (Routine); Ordered 07/10/24 Ordered By: Jovani Gutiérrez Quality Discharge Quality Measures none MD Attestestation MD Attestation I have examined the patient, reviewed labs and imaging findings, discussed the case with the resident(s), and reviewed entered orders. I agree with the plan of care as outlined in this note. Dr. Bolivar
== END 2024-07-10 11:45 | disposition home or self-care (01) ==
LOC: SERX 08:16 → S3NX 19:23 → SERHOLD 07-10 08:36 → S3NX 07-10 08:36
PROVIDERS: Emergency Medicine; Admitting Provider Student in an Organized Health Care Education/Training Program; Emergency Provider Emergency Medicine; PCP Family Medicine; Visit Provider Student in an Organized Health Care Education/Training Program
DX: R11.10 Vomiting, unspecified (principal); R19.7 Diarrhea, unspecified; I49.3 Ventricular premature depolarization; F41.9 Anxiety disorder, unspecified; E87.8 Other disorders of electrolyte and fluid balance, not elsewhere classified; E87.6 Hypokalemia; Z86.79 Personal history of other diseases of the circulatory system
CPT/HCPCS: 36415; 71045; 80048; 80053; 80076; 80307; 83036; 83690; 83735; 83880; 84100; 84443; 84484; 85025; 85610; 85730; 87177; 87205; 87209; 87329; 93005; 94762; 96361; 96365; 96366; 96367; 96374; 96375; 96376; 99291; G0378; J2060; J2405; J2470; J3475; J3480; J7030; J7120; A9270

== ENCOUNTER 2024-08-20 18:37 | Observation (INO) | payer BC, SELFPAY ==
[2024-08-20 18:38] VITALS: BMI 25.2
--- NOTE | 2024-08-20 18:44 | EKG_ITS ---
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1960 Requested By: ED Temporary Provider Order Number: [id number] Reading MD: ED Temporary Provider Measurements Intervals [place] Rate: 92 P: 89 LA: 144 QRS: 89 QRSD: 126 T: 75 QT: 385 QTc: 478 Interpretive Statements SINUS RHYTHM MODERATE INTRAVENTRICULAR CONDUCTION DELAY [110+ ms QRS DURATION] ST DEVIATION AND MODERATE T-WAVE ABNORMALITY, CONSIDER LATERAL ISCHEMIA [-0.1+ mV T-WAVE IN I/aVL/V5/V6] ST DEVIATION AND MODERATE T-WAVE ABNORMALITY, CONSIDER INFERIOR ISCHEMIA [-0.1+ mV T-WAVE IN II/aVF] Compared to ECG 07/09/2024 02:30:35 Intraventricular conduction delay now present Ventricular premature complex(es) no longer present Myocardial infarct finding no longer present T-wave abnormality still present Possible ischemia still present /store/S0/[id number].pdf
[2024-08-20 18:46] VITALS: BP 154/103; PULSE 88; RESP 28; TEMP 36.6; O2SAT 96
--- NOTE | 2024-08-20 18:54 | PD.EDRME ---
Rapid Medical Screening Exam RME Arrival date/time: 08/20/24 18:37 63-year-old female with past medical history of Torsades, tubal ligation, and breast lumpectomy presents emergency department complaining of nausea vomiting and left-sided chest pain. Chief Complaint: Chest Pain Vital signs: Vital Signs Temperature 97.8 F 08/20/24 18:46 Pulse Rate 88 08/20/24 18:46 Respiratory Rate 28 H 08/20/24 18:46 Blood Pressure 154/103 H 08/20/24 18:46 Pulse Oximetry (%) 96 08/20/24 18:46 Oxygen Delivery Method Room Air 08/20/24 18:46 Vital signs reviewed by provider: Yes
--- NOTE | 2024-08-20 18:55 | XR_ITS ---
Examination: PA lateral chest 2 views Technique: Upright PA lateral chest 2 views Exam date and time: August 20, 2024 1934 hrs. Indications: Chest pain vomiting today. Findings: Normal heart size No lobar pneumonia or pulmonary edema The osseous structures are intact Minor linear scarring right upper lobe Impression: No pneumonia or pulmonary edema
[2024-08-20] MEDS: LORazepam 0.5 MG TABLET 1 MG PO (19:13)
[2024-08-20] MEDS: METOCLOPRAMIDE INJ 5 MG/ML VIAL 2 ML 10 MG IM (19:14)
[2024-08-20 19:48] LABS: Basophils # (Auto) 0.1 Thou/mm3 (0.0-0.2); Basophils % (Auto) 1 % (0-2.5); Eosinophils % (Auto) 0 % (0-10); Hemoglobin 14.9 g/dL (12.0-16.0); Immature Granulocytes % (Auto) 0 % (0-0); Immature Granulocytes Auto 0.05 Thou/mm3 (0.00-0.00); Lymphocytes # (Auto) 2.8 Thou/mm3 (1.0-4.8); Lymphocytes % (Auto) 23 % (10-50); Mean Corpuscular HGB Conc 33.9 g/dl (31.0-37.0); Mean Corpuscular Hemoglobin 28.1 pg (25.0-35.0); Mean Corpuscular Volume 83 fL (80-100); Monocytes # (Auto) 0.6 Thou/mm3 (0.0-0.8); Monocytes % (Auto) 5 % (0-12); Neutrophils # (Auto) 8.9 Thou/mm3 (1.8-7.7); Neutrophils % (Auto) 71 % (37-80); Nucleated Red Blood Cell % 0 /100 WBC (0); Platelet Count 308 Thou/mm3 (140-440); RDW Standard Deviation 39.7 fL (36.4-46.3); White Blood Count 12.5 Thou/mm3 (3.6-11.0)
[2024-08-20 20:13] LABS: Alanine Aminotransferase 10 U/L (10-49); Albumin, Serum 5.1 gm/dL (3.4-4.8); Albumin/Globulin Ratio 1.7 (1.2-2.2); Alkaline Phosphatase 66 U/L (46-116); Anion Gap 16 (7-16); Aspartate Amino Transferase 21 U/L (0-34); BUN/Creatinine Ratio 11 Ratio (12-20); Bilirubin,Total 0.9 mg/dL (0.3-1.2); Blood Urea Nitrogen 11 mg/dL (9-23); Calcium 10.8 mg/dL (8.3-10.6); Calcium (Corrected) 10.8 mg/dL (8.5-10.1); Carbon Dioxide 19.1 mMol/L (20.0-31.0); Chloride 108 mMol/L (98-107); Glucose 175 mg/dL (74-106); Magnesium 1.9 mg/dL (1.6-2.6); Osmolality,Calculated 288 (275-295); Potassium 3.4 mMol/L (3.4-5.1); Sodium 143 mMol/L (136-145); Total Protein 8.1 gm/dL (5.7-8.2); Troponin I < 0.020 ng/mL (0.0-0.045); eGFR > 60 See Note
[2024-08-20 20:24] LABS: B-Type Natriuretic Peptide 147 pg/mL (0-100)
[2024-08-20 20:25] LABS: Prothrombin Time 11.4 Seconds (9.0-12.2)
[2024-08-20 20:37] LABS: Collection Type, Urine Clean Catch
[2024-08-20 20:48] LABS: Bilirubin,Urine Negative (Negative); Blood,Urine Trace (Negative); Clarity,Urine Turbid (Clear/Hazy); Color,Urine Yellow (Lt Yel-Yel); Glucose, Urine Trace (Negative); Ketones,Urine 1+ (Negative); Leukocyte Esterase,Urine Negative (Negative); Nitrite,Urine Negative (Negative); Protein,Urine 2+ (Neg - Trace); RBC,Urine 12 /hpf (0-3); Specific Gravity,Urine 1.033 (1.001-1.035); Squamous Epithelial Cell,Urine 1 /hpf (0-5); WBC,Urine 8 /hpf (0-5)
[2024-08-20 21:05] LABS: Amphetamine/Methamp Scrn,U Negative (Negative); Barbiturate Screen,Urine Negative (Negative); Benzodiazepines Screen,Urine Positive (Negative); Benzoylecgonine Screen, Ur Negative (Negative); Fentanyl Screen,Urine Negative (Negative); Opiate Screen,Urine Negative (Negative); THC Screen,Urine Positive (Negative)
--- NOTE | 2024-08-20 22:01 | EKG_ITS ---
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
--- NOTE | 2024-08-20 22:08 | PD.EDCHEST ---
ED Chest Pain RME/HPI General Chief Complaint: Chest Pain Stated Complaint: VOMITING SINCE 1500 YEST, CXP SINCE 1400 TODAY Arrival date/time: 08/20/24 18:37 RME / HPI RME / HPI narrative: 08/20/24 18:37 63-year-old female with past medical history of Torsades, tubal ligation, and breast lumpectomy presents emergency department complaining of nausea vomiting and left-sided chest pain. --------- Dr. Tolbert?s Main ED Evaluation: 63yo female with a history of Torsades presents to the ED for a chief complaint of vomiting x yesterday. Patient states she started vomiting after receiving bad news yesterday, reporting she persistently vomited from [id number]. She reports she started vomiting again today at 1400 and has been nauseous since. She notes she smoked marijuana to try to help alleviate her symptoms, but they did not improve, so she came in for evaluation. She endorses associated palpitations and burning to her chest. She denies any abdominal pain, back pain, fever, chills, dizziness or any other associated symptoms. Related Data Home Medications ?Medication ?Instructions ?Recorded ?Confirmed alprazolam 1 mg tablet 1 mg PO DAILY PRN Anxiety 07/09/24 08/21/24 buspirone 15 mg tablet 15 mg PO HS 07/09/24 08/21/24 Previous Rx's ?Medication ?Instructions ?Recorded alprazolam 0.5 mg tablet 0.5 mg PO BID PRN anxiety #6 tabs 07/10/24 scopolamine base 1 mg over 3 days 1 mg topical Q3D #24 ea 07/10/24 transdermal patch Allergies Allergy/AdvReac Type Severity Reaction Status Date / Time codeine Allergy Severe Hives Verified 08/20/24 18:41 Penicillins Allergy Severe Hives Verified 08/20/24 18:41 Review of Systems Review of Systems Systems Reviewed: All systems reviewed, normal except as documented ED Exam Narrative Physical exam: GENERAL APPEARANCE: alert and oriented x 4, well-developed, well-nourished, actively vomiting, no acute distress VITALS: All vitals were reviewed and the pulse ox is 96% on room air, which is normal according to my interpretation. HEENT: Normocephalic, atraumatic; pupils equal, round, reactive to light; EOMI; mucous membranes pink, moist; oropharynx clear NECK: Supple LUNGS: CTABL; no wheezes, no rales, no rhonchi; mildly tachypneic HEART: Tachycardic, regular rhythm; normal S1, S2; no murmurs ABDOMEN: non distended; normal BS; soft, no tenderness, no guarding, no rebound; no masses, no organomegaly, no hernia BACK: no CVA tenderness EXTREMITIES: atraumatic; no edema NEUROLOGIC: awake; alert and oriented x4; cranial nerves II-XII grossly intact; no focal sensory or motor deficits PSYCHIATRIC: appropriate mood and affect SKIN: warm, dry, normal color; no rashes Course Course Course Narrative: CXR is ordered for determining the etiology of palpitations. Quality Measures none Orders Category Date Time Status Bedside COVID-19 Antigen Test NOW Care 08/20/24 22:33 Active Bedside Influenza A&B Antigen Test NOW Care 08/20/24 22:33 Completed EKG (ED ONLY) *Do not use* NOW Care 08/20/24 18:44 Completed EKG (ED ONLY) *Do not use* NOW Care 08/20/24 22:01 Completed EKG (ED Only) Stat Exams 08/20/24 18:44 Draft EKG (ED Only) Stat Exams 08/20/24 22:01 Draft XR chest 2V Stat Exams 08/20/24 18:55 Completed B-Type Natriuretic Peptide Stat Lab 08/20/24 19:31 Completed CBC Stat Lab 08/20/24 19:31 Completed Comprehensive Metabolic Panel Stat Lab 08/20/24 19:31 Completed Drug Screen,Urine Stat Lab 08/20/24 20:32 Completed Magnesium Stat Lab 08/20/24 19:31 Completed Partial Thromboplastin Time Stat Lab 08/20/24 19:31 Completed Prothrombin Time with INR Stat Lab 08/20/24 19:31 Completed Troponin I Stat Lab 08/20/24 19:31 Completed Troponin I Stat Lab 08/20/24 22:05 Completed Urinalysis Stat Lab 08/20/24 20:32 Completed LORazepam [Ativan Inj] Med 08/20/24 22:39 Discontinued 2 mg IVP X1 ONE LORazepam [Ativan] Med 08/20/24 18:55 Discontinued 1 mg PO X1 ONE Magnesium Oxide [Mag-Ox 400] Med 08/20/24 22:38 Discontinued 400 mg PO X1 ONE Magnesium Sulfate 1 gm Ivpb [Magnesium Sulfate Ivpb] Med 08/20/24 22:38 Discontinued 1 gm in 100 ml IV X1 Metoclopramide Inj [Reglan Inj] Med 08/20/24 18:56 Discontinued 10 mg IM X1 ONE Potassium Chloride [K-Dur] Med 08/20/24 22:36 Discontinued 40 meq PO X1 ONE Sodium Chloride 0.9% 1000 ml [Ns] 1,000 ml Med 08/20/24 22:40 Discontinued IV 999 mls/hr cefTRIAXone/D5w 1gm IV premix [Rocephin/D5w 1gm IV Med 08/20/24 22:42 Discontinued premix] 50 ml IV X1 Vital Signs Vital signs: Vital Signs Temperature 97.8 F 08/20/24 18:46 Pulse Rate 88 08/20/24 18:46 Respiratory Rate 28 H 08/20/24 18:46 Blood Pressure 154/103 H 08/20/24 18:46 Pulse Oximetry (%) 96 08/20/24 18:46 Oxygen Delivery Method Room Air 08/20/24 18:46 Chest Pain MDM Narrative MDM Narrative:: Scribe Attestation: 08/20/24 - Sussy Crump am scribing for and in the presence of Dr. Tolbert. Patient data External records reviewed:: [facility] previous records (Per chart review, patient was seen here on 07/09/24 for food poisoning.) Clinical information provided by:: patient Social determinants that could affect healthcare access:: none Patient has the following chronic illnesses:: Torsades How is presenting disease/condition affected by chronic disease/condition?: uneffected by Evaluation data The following diagnostics were reviewed and interpreted by me:: lab results, radiology exam(s) and EKG tracing(s) Lab and/or radiology exams considered but not ordered:: none Interpretation Summary: WBC count is elevated at 12.5, PT and INR are normal, PTT is normal, Potassium is 3.4 (additional Potassium ordered), UA is positive for a UTI (Rocephin ordered), according to my interpretation. EKG done at 2224, NSR, rate of 69, normal axis, frequent PVCs, ST depressions and T-wave inversions in the inferior leads, QTc: 4633, QRS: 133, no STEMI, according to my interpretation. [place] [facility] Report Signed Patient: MOUNIKA PASTRANA. Record#: [id number] Birthdate: 1960 Age/Sex: 63 / F Location: [facility] Attending Dr: Ordering Physician: Lou PEARSON)David Date of Service: 08/20/24 Procedure(s): XR chest 2V Accession Number(s): [id number] cc: Ibrahima Delgado MD; NO PRIMARY/FAMILY,PHYSICIAN; Lou Spence (VEHICLE MECHANIC),David RODARTE~ Examination: PA lateral chest 2 views Technique: Upright PA lateral chest 2 views Exam date and time: August 20, 2024 1934 hrs. Indications: Chest pain vomiting today. Findings: Normal heart size No lobar pneumonia or pulmonary edema The osseous structures are intact Minor linear scarring right upper lobe Impression: No pneumonia or pulmonary edema Dictated By: Ibrahima Delgado MD Signed By: <Electronically signed by Ibrahima Delgado MD in OV> 08/20/241 Medications / Prescriptions Medications or Prescriptions considered but not ordered:: none Medication administrations:: Medication Administration History Acetaminophen (Acetaminophen 325 Mg Tablet) 650 mg PO Q6H PRN PRN Reason: Fever >101.5 Stop: 09/20/24 00:25 Acetaminophen (Acetaminophen 325 Mg Tablet) 650 mg PO Q6H PRN PRN Reason: PAIN SCALE 1-3 (mild Stop: 09/20/24 00:25 Al Hydrox/Mg Hydrox/Simethicone (Mg Hyd/Al Hyd/Nohelia (Maalox Reg) Susp 30 Ml Udc) 30 ml PO Q6H PRN PRN Reason: Indigestion Stop: 09/20/24 00:25 Capsaicin (Capsaicin Cr 60 Gm Tube) 0 gm TOP TID JANET Stop: 09/20/24 05:59 Last Admin: 08/21/24 05:30 Dose: Not Given Documented By: MRG Non-Admin Reason: Medication Not Available Heparin Sodium (Porcine) (Heparin Sod Inj 5000 Unit/Ml Vial) 5,000 unit SC Q12H JANET Stop: 09/04/24 08:59 Pantoprazole Sodium (Pantoprazole 40 Mg Tablet) 40 mg PO QDAY JANET Stop: 09/20/24 08:59 Scopolamine (Scopolamine 1 Mg Tdsy) 1 mg TOP Q3D PRN PRN Reason: Nausea/Vomiting Stop: 09/20/24 00:44 Sennosides (Senna Tablet) 1 tab PO QDAY PRN; Protocol PRN Reason: constipation Stop: 09/20/24 00:25 Discontinued Medications Magnesium Sulfate/Dextrose (Magnesium Sulfate Ivpb) 1 gm in 100 mls @ 100 mls/hr IV X1 ONE Stop: 08/20/24 23:37 Last Infusion: 08/21/24 00:30 Dose: Infused Documented By: Admin: 08/20/24 22:58 Dose: 100 mls/hr Documented By: MARYELLEN Sodium Chloride (Ns) 1,000 mls @ 999 mls/hr IV .Q1H1M ONE Stop: 08/20/24 23:40 Last Infusion: 08/21/24 00:17 Dose: Infused Documented By: Admin: 08/20/24 22:59 Dose: 999 mls/hr Documented By: MARYELLEN Ceftriaxone Sodium/Dextrose (Rocephin/D5w 1gm Iv Premix) 50 mls @ 100 mls/hr IV X1 ONE Stop: 08/20/24 23:11 Last Infusion: 08/20/24 23:32 Dose: Infused Documented By: Admin: 08/20/24 22:57 Dose: 100 mls/hr Documented By: MARYELLEN Lorazepam (Lorazepam 0.5 Mg Tablet) 1 mg PO X1 ONE Stop: 08/20/24 18:56 Last Admin: 08/20/24 19:13 Dose: 1 mg Documented By: CVL Lorazepam (Lorazepam 2 Mg/Ml Vial) 2 mg IVP X1 ONE Stop: 08/20/24 22:40 Last Admin: 08/20/24 22:56 Dose: 2 mg Documented By: MARYELLEN Magnesium Oxide (Magnesium Oxide 400 Mg Tablet) 400 mg PO X1 ONE Stop: 08/20/24 22:39 Metoclopramide HCl (Metoclopramide Inj 5 Mg/Ml Vial 2 Ml) 10 mg IM X1 ONE; Protocol Stop: 08/20/24 18:57 Last Admin: 08/20/24 19:14 Dose: 10 mg Documented By: CVL Potassium Chloride (Potassium Chloride 20 Meq Tabcr) 40 meq PO X1 ONE Stop: 08/20/24 22:37 Last Admin: 08/20/24 22:58 Dose: 40 meq Documented By: MARYELLEN Potassium Chloride (Potassium Chloride 10% 20 Meq/15 Ml Udc) 40 meq PO X1 ONE Stop: 08/21/24 01:29 Last Admin: 08/21/24 02:15 Dose: 40 meq Documented By: MARYELLEN see above Consultations Consultation(s) initiated? (list below): Yes Consultation #1 (Physician, Specialty, Details): Discussed case with [Dr. Munoz, attending Dr. Bolivar] from Hospitalist service regarding admission. Discussed patients ED course, exam findings, labs, and radiology results. The Hospitalist [agrees] to accept the patient for admission. Time: 23:54 Diagnosis Chest Pain Differential Diagnosis: other (positional vertigo, central vertigo, viral stomach flu, marijuana induced hyperemesis) Most likely diagnosis given after review of the tests above:: see below Admission Indicated Admission indicated?: indicated Admission Request Was there a request for admission?: Yes Admission Attestation Admission request attestation: Discussed case with [] from Hospitalist service regarding admission. Discussed patients ED course, exam findings, labs, and radiology results. The Hospitalist [agrees,declines] to accept the patient for admission. Disposition Plan Disposition Plan: Admit Discharge Plan Plan Patient Disposition: Admit Acute Care w/in Hospital Problem List Clinical Impression: Intractable vomiting
[2024-08-20 22:27] VITALS: BP 109/79; PULSE 82; RESP 16; O2SAT 95
[2024-08-20 22:43] VITALS: BP 109/79; PULSE 85; RESP 26; TEMP 36.6; O2SAT 96
[2024-08-20 22:53] LABS: Troponin I < 0.020 ng/mL (0.0-0.045)
[2024-08-20] MEDS: LORazepam 2 MG/ML VIAL IVP (22:56)
[2024-08-20] MEDS: cefTRIAXone/D5w 1gm IV premix 50 ML IV (22:57)
[2024-08-20] MEDS: POTASSIUM CHLORIDE 20 mEq TABCR 40 MEQ PO (22:58)
[2024-08-20] MEDS: Magnesium Sulfate 1 gm Ivpb 1 GM/100 ML BAG IV (22:58)
[2024-08-20] MEDS: SODIUM CHLORIDE 0.9% 1000 ML 1,000 ML 999 ML IV (22:59)
[2024-08-20 23:01] VITALS: PULSE 83; RESP 14; O2SAT 95
[2024-08-20 23:30] VITALS: PULSE 73; RESP 33; O2SAT 91
[2024-08-21] VITALS (11 sets, daily range): BP systolic 103–134; BP diastolic 51–75; PULSE 54–93; RESP 16–20; TEMP 36.2–37.4; O2SAT 91–100; BMI 25.1
--- NOTE | 2024-08-21 00:38 | PD.RESHP ---
Documentation for date of: 08/21/24 [facility] History of Present Illness Chief complaint: Nausea and vomiting History of present illness: Ms. Van is a 63-year-old female with past medical history of torsades de pointes, tubal ligation and breast lumpectomy who presented to [facility] emergency department on 08/20/2024 with chief complaint of nausea and vomiting. According to the patient her symptoms started yesterday, she reported persistent vomiting more than 20 episodes from [id number], then her symptoms relieved for a while and she started vomiting again around 2 PM and eventually came to the ED. Initially patient thought that she had food poisoning, yet her symptoms did not resolve. Patient does report that she tried to use marijuana to help alleviate her symptoms. Patient complains of palpitations and burning sensation in her chest. She denies any abdominal pain, back pain, fever, chills and other symptoms. ED Course: ED Vitals: On presentation blood pressure 154/103, P 88, RR 28, temp 97.8, O2 sat 96 on room air ED Labs: ED labs significant for 12.5 WBC, RBC 5.3, Chloride 108, venous CO2 19.1, glucose 175, corrected calcium 10.8, BNP 147, albumin 5.1. Urine tox screen positive for benzodiazepines and marijuana. Patient was given Ativan before urine drug screen ED Imaging:On presentation in ED EKG shows sinus rhythm QTc 478 chest x-ray negative for pneumonia/pulmonary edema. Repeat EKG in ED showed sinus rhythm with PVCs, QTc 477 ED Treatment:Patient was given lorazepam 1 mg p.o. x 1, Reglan 10 mg IM x 1, Ativan, lorazepam 2 mg IVP x 1, ceftriaxone x 1, potassium 40 mEq p.o. x 1, magnesium 1 g x 1 and 1 L bolus of NS in ED Review of Systems Review of Systems Narrative Review of Systems: ROS: -CONSTITUTIONAL: Denies weight loss, fever and chills. -HEENT: Denies changes in vision and hearing. -RESPIRATORY: Denies SOB and cough. -CV: Denies palpitations and positive for burning Chest Pain. -GI: Positive for nausea, vomiting and abdominal pain, denies constipation and diarrhea. -: Denies dysuria and urinary frequency. -MSK: Denies myalgia and joint pain. -SKIN: Denies rash and pruritus. -NEUROLOGICAL: Denies headache and syncope. -PSYCHIATRIC: Denies recent changes in mood. Denies anxiety and depression. Past Medical History Past Medical History Comments PMH COMMENT: PMH: Positive for torsades de pointes, tubal ligation and breast lumpectomy PSHx: tubal ligation and breast lumpectomy Allergies: Codeine, penicillin Social history: -Smoking: Former smoker -Alcohol Use: Occasional alcohol use -Illicit Drug Use: Smokes marijuana Family History: No pertinent family history Exam Vital Signs Temp Pulse Resp BP Pulse Ox O2 Del Method 98 F 85 26 H 109/79 96 Room Air 08/20/24 22:43 08/20/24 22:43 08/20/24 22:43 08/20/24 22:43 08/20/24 22:43 08/20/24 22:43 Narrative Exam Physical Exam General: Awake and in no acute distress. Conversational and non-toxic appearing. HEENT: Normocephalic, atraumatic, mucous membranes moist. Heart: Regular rate and rhythm, no murmurs. Lungs: Clear to auscultation with no wheezing or crackles. Abdomen: Soft, nondistended, nontender, positive bowel sounds. ?No guarding or rebound tenderness. Neurologic: Alert and oriented x3, tired, no gross neurological deficit, and patient able to move all 4 extremities. Extremities: No edema. Skin: No rash or ecchymoses. Results: Labs 08/20/24 19:31 08/21/24 00:58 Labs: Short CBC 08/20/24 Range/Units 19:31 WBC 12.5 H (3.6-11.0) Thou/mm3 Hgb 14.9 (12.0-16.0) g/dL Hct 44.0 (36.0-46.0) % Plt Count 308 D (140-440) Thou/mm3 BMP 08/20/24 19:31 Sodium 143 Potassium 3.4 Chloride 108 H Carbon Dioxide 19.1 L BUN 11 Creatinine 1.0 Glucose 175 H Calcium 10.8 H Cardiac Enzymes 08/20/24 08/20/24 Range/Units 19:31 22:05 Troponin I < 0.020 < 0.020 (0.0-0.045) ng/mL Liver Function 08/20/24 Range/Units 19:31 Total Bilirubin 0.9 (0.3-1.2) mg/dL AST 21 (0-34) U/L ALT 10 (10-49) U/L Alkaline Phosphatase 66 (46-116) U/L Albumin 5.1 H (3.4-4.8) gm/dL Urine 08/20/24 Range/Units 20:32 Urine Color Yellow (Lt Yel-Yel) Urine Clarity Turbid A (Clear/Hazy) Urine pH 6.0 (5.0-7.0) Ur Specific [place] 1.033 (1.001-1.035) Urine Protein 2+ A (Neg - Trace) Urine Glucose (UA) Trace (Negative) Quality Measures Quality Measures none Medications Home Medications and Allergies Home Medications ?Medication ?Instructions ?Recorded ?Confirmed ?Type alprazolam 1 mg tablet 1 mg PO DAILY PRN Anxiety 07/09/24 07/09/24 History buspirone 15 mg tablet 15 mg PO HS 07/09/24 07/09/24 History Allergies Allergy/AdvReac Type Severity Reaction Status Date / Time codeine Allergy Severe Hives Verified 08/20/24 18:41 Penicillins Allergy Severe Hives Verified 08/20/24 18:41 Visit Medications Acetaminophen (Acetaminophen 325 Mg Tablet) 650 mg PO Q6H PRN PRN Reason: Fever >101.5 Stop: 09/20/24 00:25 Acetaminophen (Acetaminophen 325 Mg Tablet) 650 mg PO Q6H PRN PRN Reason: PAIN SCALE 1-3 (mild Stop: 09/20/24 00:25 Al Hydrox/Mg Hydrox/Simethicone (Mg Hyd/Al Hyd/Nohelia (Maalox Reg) Susp 30 Ml Udc) 30 ml PO Q6H PRN PRN Reason: Indigestion Stop: 09/20/24 00:25 Capsaicin (Capsaicin Cr 60 Gm Tube) 0 gm TOP TID JANET Stop: 09/20/24 05:59 Heparin Sodium (Porcine) (Heparin Sod Inj 5000 Unit/Ml Vial) 5,000 unit SC Q12H JANET Stop: 09/04/24 08:59 Pantoprazole Sodium (Pantoprazole 40 Mg Tablet) 40 mg PO QDAY JANET Stop: 09/20/24 08:59 Scopolamine (Scopolamine 1 Mg Tdsy) 1 mg TOP Q3D PRN PRN Reason: Nausea/Vomiting Stop: 09/20/24 00:44 Sennosides (Senna Tablet) 1 tab PO QDAY PRN; Protocol PRN Reason: constipation Stop: 09/20/24 00:25 Discontinued Medications Magnesium Sulfate/Dextrose (Magnesium Sulfate Ivpb) 1 gm in 100 mls @ 100 mls/hr IV X1 ONE Stop: 08/20/24 23:37 Last Infusion: 08/21/24 00:30 Dose: Infused Sodium Chloride (Ns) 1,000 mls @ 999 mls/hr IV .Q1H1M ONE Stop: 08/20/24 23:40 Last Infusion: 08/21/24 00:17 Dose: Infused Ceftriaxone Sodium/Dextrose (Rocephin/D5w 1gm Iv Premix) 50 mls @ 100 mls/hr IV X1 ONE Stop: 08/20/24 23:11 Last Infusion: 08/20/24 23:32 Dose: Infused Lorazepam (Lorazepam 0.5 Mg Tablet) 1 mg PO X1 ONE Stop: 08/20/24 18:56 Last Admin: 08/20/24 19:13 Dose: 1 mg Lorazepam (Lorazepam 2 Mg/Ml Vial) 2 mg IVP X1 ONE Stop: 08/20/24 22:40 Last Admin: 08/20/24 22:56 Dose: 2 mg Magnesium Oxide (Magnesium Oxide 400 Mg Tablet) 400 mg PO X1 ONE Stop: 08/20/24 22:39 Metoclopramide HCl (Metoclopramide Inj 5 Mg/Ml Vial 2 Ml) 10 mg IM X1 ONE; Protocol Stop: 08/20/24 18:57 Last Admin: 08/20/24 19:14 Dose: 10 mg Potassium Chloride (Potassium Chloride 20 Meq Tabcr) 40 meq PO X1 ONE Stop: 08/20/24 22:37 Last Admin: 08/20/24 22:58 Dose: 40 meq Assessment & Plan Plan Assessment and plan: Summary: Ms. Van is a 63-year-old female with past medical history of torsades de pointes, tubal ligation and breast lumpectomy who presented to [facility] emergency department on 08/20/2024 with chief complaint of nausea and vomiting. Patient admitted to hospital for further management of intractable nausea and vomiting. # Intractable nausea and vomiting DDx: Viral gastroenteritis, cyclical vomiting syndrome, cannabinoid hyperemesis Patient reported persistent vomiting more than 20 episodes from [id number], then her symptoms relieved for a while and she started vomiting again around 2 PM. Urine tox screen positive for marijuana, patient reports he tried marijuana to alleviate her symptoms. Patient was given Ativan in ED, reports improvement in symptoms Plan: -Scopolamine patch as needed for nausea/vomiting -Capsaicin topical 3 times daily -Avoid QT prolonging agents -Follow electrolytes in a.m. #History of torsades de pointes Patient has history of QT prolongation, torsades de pointes, QTc 478 Plan: -Avoid QT prolonging agents -Keep potassium more than 4, magnesium more than 2 #Leukocytosis Possibly reactive, monitor in a.m. #Hypercalcemia, mild Follow in a.m. DVT prophylaxis: Heparin every 12 hours GI prophylaxis: Protonix p.o. Diet: N.p.o. Lines: Peripheral IV Code status: Full code Case discussed with Attending Dr. Bolivar. Miriam Munoz PGY1 Disclaimer: This note was dictated by speech recognition. Minor errors in telephone maintenance mechanic may be present due to voice recognition software. Attending Provider Attestation/Addendum I have examined the patient, reviewed labs and imaging findings, discussed the case with the resident(s), and reviewed entered orders. I agree with the plan of care as outlined in this note, with these additional summaries/recommendations: Patient is a 63-year-old female with a medical history of motion sickness, anxiety, torsades, and QTc prolongation presents to [facility] emergency department on 08/21/2024 with chief complaint of intractable nausea and vomiting. Per patient she has vomited over 20 times today to the point where she decided to come to the emergency room. In the emergency room patient was found to have intractable nausea and vomiting and thus hospitalist team was consulted for continuation of care. # Intractable nausea and vomiting At this time most likely secondary to cannabinoid hyperemesis syndrome causing cyclic vomiting given patient's prior hospitalization for similar symptoms and U tox consistently positive for THC Endorses over 20 episodes of vomiting prior to arrival, denies seeing blood Plan: Patient received multiple doses of IV Ativan in the emergency department for intractable nausea and vomiting. Limited choices for antiemetics given QTc prolongation. Start scopolamine patch and capsaicin. Will try to avoid further Ativan but okay to give if needed. We will admit to observation given the severity of nausea and vomiting and if improved anticipate discharge in the next 24-48 hours. Counseled patient at bedside on marijuana cessation. # Prolonged QTc # History of torsades On admission EKG: Sinus rhythm with PVCs, rate 69, no LAD, no acute ST changes, QTc 477 Plan: Avoid acute to prolonging medications and monitor for now. Keep Mag >2 & potassium >4 #Leukocytosis Most likely reactive Plan: Monitor for now, no antibiotics needed at this time. Repeat hematology panel in am # Anxiety Plan: Resume home BuSpar when tolerating p.o. Dr. Bolivar
[2024-08-21 01:22] LABS: Magnesium 2.2 mg/dL (1.6-2.6); Potassium 3.4 mMol/L (3.4-5.1)
[2024-08-21] MEDS: POTASSIUM CHLORIDE 10% 20 MEQ/15 ML UDC 40 MEQ PO (02:15)
[2024-08-21 05:39] LABS: Basophils # (Auto) 0.1 Thou/mm3 (0.0-0.2); Basophils % (Auto) 1 % (0-2.5); Eosinophils % (Auto) 0 % (0-10); Hematocrit 36.5 % (36.0-46.0); Hemoglobin 12.1 g/dL (12.0-16.0); Immature Granulocytes % (Auto) 0 % (0-0); Immature Granulocytes Auto 0.02 Thou/mm3 (0.00-0.00); Lymphocytes # (Auto) 2.6 Thou/mm3 (1.0-4.8); Lymphocytes % (Auto) 31 % (10-50); Mean Corpuscular HGB Conc 33.2 g/dl (31.0-37.0); Mean Corpuscular Hemoglobin 28.3 pg (25.0-35.0); Mean Corpuscular Volume 85 fL (80-100); Monocytes # (Auto) 0.6 Thou/mm3 (0.0-0.8); Monocytes % (Auto) 7 % (0-12); Neutrophils # (Auto) 5.2 Thou/mm3 (1.8-7.7); Neutrophils % (Auto) 61 % (37-80); Nucleated Red Blood Cell % 0 /100 WBC (0); Platelet Count 248 Thou/mm3 (140-440); RDW Standard Deviation 40.6 fL (36.4-46.3); Red Blood Count 4.28 Miln/mm3 (4.00-5.20); White Blood Count 8.5 Thou/mm3 (3.6-11.0)
[2024-08-21 07:18] LABS: Alanine Aminotransferase 8 U/L (10-49); Anion Gap 6 (7-16); Aspartate Amino Transferase 17 U/L (0-34); BUN/Creatinine Ratio 14 Ratio (12-20); Bilirubin,Total 0.6 mg/dL (0.3-1.2); Blood Urea Nitrogen 10 mg/dL (9-23); Calcium 9.3 mg/dL (8.3-10.6); Carbon Dioxide 26.6 mMol/L (20.0-31.0); Chloride 112 mMol/L (98-107); Creatinine (Component) 0.7 mg/dL (0.6-1.3); Estimated Creatinine Clearance 87.1 mL/min (>60); Glucose 95 mg/dL (74-106); Magnesium 2.3 mg/dL (1.6-2.6); Osmolality,Calculated 287 (275-295); Potassium 4.4 mMol/L (3.4-5.1); Sodium 145 mMol/L (136-145); Total Protein 6.5 gm/dL (5.7-8.2); eGFR > 60 See Note
[2024-08-21 07:52] LABS: Albumin, Serum 4.2 gm/dL (3.4-4.8); Albumin/Globulin Ratio 1.8 (1.2-2.2); Alkaline Phosphatase 52 U/L (46-116); Calcium (Corrected) 9.3 mg/dL (8.5-10.1); Globulin 2.3 gm/dL (2.3-3.5)
[2024-08-21] MEDS: SCOPOLAMINE 1 MG TDSY TOP (09:15)
[2024-08-21] MEDS: PANTOPRAZOLE 40 MG TABLET PO (09:15)
[2024-08-21] MEDS: HEPARIN SOD INJ 5000 UNIT/ML VIAL SC ×2 (09:16→21:50)
--- NOTE | 2024-08-21 10:28 | PC.SS ---
April Van is a 63-year-old female admitted to Med-Surg for Intractable N/V. SS conducted bedside contact with the patient to complete initial assessment and to discuss discharge planning.? Patient confirmed demographic information. Patient identifies her Talha Bailey [phone] as her surrogate decision maker. Patient resides at home with her . Pt states she is able to complete all ADL?s independently, no need for any source of DME. Pts PCP is Dr. Ortega and her pharmacy of choice is [facility] on [address]. DC options discussed and pt wishes to return ome, no needs identified. Pts will provide transportation upon DC. No further intervention required at this time, social media job titles would be available to address any further concerns. DC Plan: Home Contact: Talha Bailey [phone] PCP: Charli Ortega
[2024-08-21] MEDS: BusPIRone HCL 5 MG TABLET 15 MG PO (12:21)
--- NOTE | 2024-08-21 14:33 | PC.SS ---
Rounding: unable to tolerate diet
--- NOTE | 2024-08-21 15:16 | ESPR_ITS ---
<Statement entered by Danny Jerry MD - 08/22/24 08:42> Senior Resident Attestation: I supervised/discussed management plan with strategy intern physician Dr. Sullivan, and was involved in the care of this patient. I personally saw and examined the patient and discussed the assessment and plan with the entire medicine team, including my attending. I agree with the assessment and plan as documented. Patient's care was discussed with attending physician, Dr. Arizmendi. Danny Jerry MD PGY-2. Documentation for date of: 08/21/24 Subjective Subjective Interval history: 08/21/2024: Patient examined at bedside today. No acute overnight events. Patient reports that she would like to know if she had a hiatal hernia and possibly get a CT scan. She says that she feels good right now but she also wants to know why she is having these recurrent nausea and vomiting episodes at this time. Says that Xanax only helps her. Her white count today is 8.5, hemoglobin 12.1, potassium 4.4, sodium 145, chloride 112, BUN/creatinine 10 and 0.7, magnesium 2.3. No other complaints at this time Exam Vital Signs Temp Pulse Resp BP Pulse Ox O2 Del Method O2 Flow Rate 97.3 F 80 18 105/51 L 99 Room Air 100 08/21/24 12:00 08/21/24 14:42 08/21/24 14:42 08/21/24 12:00 08/21/24 14:42 08/21/24 12:00 08/21/24 00:55 Narrative Exam General: AAOx3, NAD, was crying a bit when i seen her HEENT: Moist mucous membranes, conjunctiva clear, EOMI, PERRLA, Cardiovascular: S1, S2, radial pulses +2 bilat, RRR Pulmonary: CTAB bilat no cough, no wheezing GI: No tenderness to light or deep palpitation, no guarding, rigidity, rebound tenderness or distension Extremities: No presence of trace or pitting edema in lower extremities bilaterally, dorsalis pedis pulses +2 bilaterally Neuro: AAOx3, no focal motor or sensory deficits in the UE or LE bilat Psych: Extremely anxious Objective Labs 08/22/24 04:44 08/22/24 04:44 Labs: Laboratory Results - last 24 hr 0208/20/24 08/20/24 19:31 20:32 22:05 WBC 12.5 H RBC 5.30 H Hgb 14.9 Hct 44.0 MCV 83 MCH 28.1 MCHC 33.9 RDW Std Deviation 39.7 Plt Count 308 D Neut % (Auto) 71 Lymph % (Auto) 23 [place] % (Auto) 5 Eos % (Auto) 0 Baso % (Auto) 1 Neut # (Auto) 8.9 H Lymph # (Auto) 2.8 [place] # (Auto) 0.6 Eos # (Auto) 0.0 Baso # (Auto) 0.1 Immature Gran # (Auto) 0.05 H Absolute Nucleated RBC 0.00 Immature Gran % 0 Nucleated RBC % 0 PT 11.4 INR 1.0 APTT 24.0 Sodium 143 Potassium 3.4 Chloride 108 H Carbon Dioxide 19.1 L Anion Gap 16 BUN 11 Creatinine 1.0 Estim Creat Clear Calc 61.0 eGFR > 60 BUN/Creatinine Ratio 11 L Glucose 175 H Calculated Osmolality 288 Calcium 10.8 H Corrected Calcium 10.8 H Magnesium 1.9 Total Bilirubin 0.9 AST 21 ALT 10 Alkaline Phosphatase 66 Troponin I < 0.020 < 0.020 B-Natriuretic Peptide 147 H Total Protein 8.1 Albumin 5.1 H Globulin 3.0 Albumin/Globulin Ratio 1.7 Ur Collection Type Clean Catch Urine Color Yellow Urine Clarity Turbid A Urine pH 6.0 Ur Specific Martin 1.033 Urine Protein 2+ A Urine Glucose (UA) Trace Urine Ketones 1+ A Urine Blood Trace Urine Nitrite Negative Urine Bilirubin Negative Urine Urobilinogen (Auto) 2.0 Ur Leukocyte Esterase Negative Urine RBC 12 H Urine WBC 8 H Ur Squamous Epith Cells 1 Urine Bacteria None Urine Opiates Screen Negative Urine Fentanyl Screen Negative Ur Barbiturates Screen Negative U Amphetamin/Meth Scrn Negative U Benzodiazepines Scrn Positive A U Cocaine Metab Screen Negative U Marijuana (THC) Screen Positive A 08/21/24 08/21/24 00:58 05:27 WBC 8.5 RBC 4.28 Hgb 12.1 D Hct 36.5 MCV 85 MCH 28.3 MCHC 33.2 RDW Std Deviation 40.6 Plt Count 248 D Neut % (Auto) 61 Lymph % (Auto) 31 [place] % (Auto) 7 Eos % (Auto) 0 Baso % (Auto) 1 Neut # (Auto) 5.2 Lymph # (Auto) 2.6 [place] # (Auto) 0.6 Eos # (Auto) 0.0 Baso # (Auto) 0.1 Immature Gran # (Auto) 0.02 H Absolute Nucleated RBC 0.00 Immature Gran % 0 Nucleated RBC % 0 PT INR APTT Sodium 145 Potassium 3.4 4.4 D Chloride 112 H Carbon Dioxide 26.6 Anion Gap 6 L BUN 10 Creatinine 0.7 Estim Creat Clear Calc 87.1 eGFR > 60 BUN/Creatinine Ratio 14 Glucose 95 D Calculated Osmolality 287 Calcium 9.3 D Corrected Calcium 9.3 D Magnesium 2.2 2.3 Total Bilirubin 0.6 AST 17 ALT 8 L Alkaline Phosphatase 52 D Troponin I B-Natriuretic Peptide Total Protein 6.5 Albumin 4.2 D Globulin 2.3 Albumin/Globulin Ratio 1.8 Ur Collection Type Urine Color Urine Clarity Urine pH Ur Specific Martin Urine Protein Urine Glucose (UA) Urine Ketones Urine Blood Urine Nitrite Urine Bilirubin Urine Urobilinogen (Auto) Ur Leukocyte Esterase Urine RBC Urine WBC Ur Squamous Epith Cells Urine Bacteria Urine Opiates Screen Urine Fentanyl Screen Ur Barbiturates Screen U Amphetamin/Meth Scrn U Benzodiazepines Scrn U Cocaine Metab Screen U Marijuana (THC) Screen Quality Measures Quality Measures none Assessment & Plan Assessment Current Active Medications: Generic Name Dose Route Start Last Admin Trade Name Freq PRN Reason Stop Dose Admin Acetaminophen 650 mg 08/21/24 00:26 Acetaminophen 325 Mg Tablet PO 09/20/24 00:25 Q6H PRN Fever >101.5 Acetaminophen 650 mg 08/21/24 00:26 Acetaminophen 325 Mg Tablet PO 09/20/24 00:25 Q6H PRN PAIN SCALE 1-3 (mild Al Hydrox/Mg Hydrox/Simethicone 30 ml 08/21/24 00:26 Mg Hyd/Al Hyd/Nohelia (Maalox Reg) Susp 30 Ml Udc PO 09/20/24 00:25 Q6H PRN Indigestion Buspirone HCl 15 mg 08/21/24 11:25 08/21/24 12:21 Buspirone Hcl 5 Mg Tablet PO 09/20/24 11:24 15 mg BID JANET Administration Capsaicin 0 gm 08/21/24 06:00 08/21/24 05:30 Capsaicin Cr 60 Gm Tube TOP 09/20/24 05:59 Not Given TID JANET Heparin Sodium (Porcine) 5,000 unit 08/21/24 09:00 08/21/24 09:16 Heparin Sod Inj 5000 Unit/Ml Vial SC 09/04/24 08:59 5,000 unit Q12H JANET Administration Pantoprazole Sodium 40 mg 08/21/24 09:00 08/21/24 09:15 Pantoprazole 40 Mg Tablet PO 09/20/24 08:59 40 mg QDAY JANET Administration Prochlorperazine Maleate 5 mg 08/21/24 11:20 Prochlorperazine Maleate 5 Mg Tablet PO 09/20/24 11:19 Q6HR PRN NAUSEA OR VOMITING Scopolamine 1 mg 08/21/24 00:36 08/21/24 09:15 Scopolamine 1 Mg Tdsy TOP 09/20/24 00:44 1 mg Q3D PRN Administration Nausea/Vomiting Sennosides 1 tab 08/21/24 00:26 Senna Tablet PO 09/20/24 00:25 QDAY PRN constipation Protocol Plan Assessment April is a 63-year-old female with a past medical history of Torsades, tubal ligation, breast lumpectomy, and motion sickness who comes please evaluate for intractable nausea and vomiting. #Intractable nausea and vomiting #History of motion sickness DDx: Motion sickness, gastroenteritis, infectious, cannabis hyperemesis syndrome, pedal hernia Patient with history of known motion sickness Patient was getting to the ICU for similar symptoms in addition to torsades Patient does have history of marijuana seen in UDS and previous admission Due to patient's QTc, we will avoid QTc prolonging antiemetics and choose compazine Urine drug screen shows positive for THC CBC EKG shows QT of 443 May consider abdominal scan for possible hiatal hernia Plan: ?PUD diet ?Compazine every 6 hours as needed ?May consider Ativan or Xanax if patient request but will try to use Compazine first ?Continue scopolamine patch as needed ? Avoid QTc prolonging agents #History of torsades de points #History of prolonged QTc Patient was hospitalized in ICU requiring shock due to similar symptoms on previous admission Current QTc 468 Was given 12 mg of Zofran in the ED Plan: ?Keep mag and potassium above 2 and 4 respectively ?Avoid QTc prolonging agents ?As above #Electrolyte derangements secondary to #GI losses #Hypokalemia Plan: ?Trend magnesium and potassium and other electrolytes very closely due to history of torsades, keep above 2 and 4 respectively ?Trend with CMP ?Replete as needed #History of anxiety Want to limit benzos as she is on Xanax at home Will consider Xanax if patient gets more anxious Plan: ? Continue with BuSpar 15 mg twice daily #Health Maintenance Disposition: MedSurg DVT prophylaxis: Heparin every 12 GI prophylaxis: Protonix Diet: PUD CODE STATUS: Full Patient seen and care discussed with my senior resident, Dr. Jerry, and my attending physician, Dr. Kyleigh Sullivan, PGY-1 Attending Provider Attestation/Addendum I reviewed labs, imaging, EKG, home medications and prior available records. Face to face evaluation was performed by me. I have personally examined the patient and discussed assessment and plan with the IM team. I reviewed the resident note and agree with the plan with exceptions as below. Intractable nausea and vomiting History of prolonged QTc Marijuana use Anxiety Start IV Protonix Continue IV fluids Avoid marijuana use Compazine for vomiting given the borderline QTc Xanax as needed for anxiety Start duloxetine for pain/anxiety
[2024-08-21] MEDS: ALPRazoLAM 0.25 MG TABLET PO (17:33)
[2024-08-21] MEDS: PROCHLORPERAZINE INJ 5 MG/ML VIAL 2 ML IV (17:34)
--- NOTE | 2024-08-21 17:54 | PD.RESCONSUL ---
HPI Data of Consult Requesting Physician: Frank Arizmendi MD Admitting Provider: Ajay Bolivar MD Attending Provider: Frank Arizmendi MD Primary Care Provider: Physician No Primary/Family Consult Narrative History of present illness: Ms. Van is a 63-year-old female with past medical history significant for torsade ( requiring multiple defibrillations/shocks -around 17 times shocks/defibrillation) anxiety disorder presented to the ED for intractable nausea and vomiting. Patient states that her daughter went into labor yesterday which provoked her anxiety and nerves causing her to become extremely nauseous and started vomiting repeatedly. Patient stated she was so anxious and was having vomiting every 3 minutes from 5 PM till 3 AM and the reason for her to come to the ED because she has a history of torsade and she was nervous that this intractable vomiting will cause her to go into torsade again. Patient states that from her last hospital admission she was supposed to see the gaming cage cashier outpatient for a follow-up visit but she was unable to make it to the appointment. Patient also states that recently she has noticed she has become increasingly short of breath and unable to walk from 1 side of her apartment to the other side without having to catch her breath and she claims her apartment is very very small. Since hospital admission patient had 250 mL of a vomitus episode approximately around 1 PM likely again provoked by anxiety because she was taken down to the CT scan and the CT was canceled and when she returned to her room she was started vomiting. Patient denies any chest pain, pressure, dizziness, or syncopal episodes. Patient does say that when she was vomiting she was having a lot of palpitations. ED Course: On initial presentation in the ED blood pressure was 154/103, heart rate 88 and respirations 28 patient was saturating on room air. Lab findings include WBC 12.5, and CMP, troponins are within normal limits. BNP is 147 Urine tox is positive for benzodiazepine and marijuana In the ED patient was given potassium 40 mEq x 1, metoclopramide 10 mg IM x 1, magnesium 1 g, lorazepam 2 mg x 1 and lorazepam 1 mg x 1. Patient was also given ceftriaxone 1 g x 1 and 1 L bolus of normal saline EKG is normal sinus rhythm with occasional PVCs Chest x-ray findings showed no pneumonia or pulmonary edema Echo findings from 03/23/2023 include: LV mild to moderately dilated. Difficult to evaluate LV function given that the patient is tachycardic and also and frequent arrhythmia. Overall LV function appears to be mildly reduced with an EF of around 45%. Will need to reevaluate later after the arrhythmia has been treated moderately dilated. Normal RV size and function Mild MR, Trace TR. No pericardial effusion Cardiac catheterization done on 0 03/26/23 include: Torsades [employer] Roni requiring multiple defibrillation shocks [at least 10-12 on the day of admission]- LHC showed normal coronaries without any angiographically significant obstruction. 2. LVEF was low normal at 50 to 55% and normal LVEDP of 10 mmHg. PMH: torsades, anxiety PSH: tubaligation and SH:Patient also confirms she has not smoked cigarettes for 16 years she however smoked 1 pack of cigarette daily from age [age] and quit 16 years ago. Patient does admit to smoking marijuana occasionally approximately 2-3 times a week. Patient also completely stopped drinking alcohol in 2021 when she was diagnosed with torsade Allergies: codein and penicillin Home Meds: Buspirone cc:: cc: Frank Arizmendi MD Review of Systems Review of Systems Systems Reviewed: All systems reviewed, normal except as documented Exam Vital Signs Temp Pulse Resp BP Pulse Ox O2 Del Method O2 Flow Rate 98.1 F 72 19 117/57 L 98 Room Air 100 08/21/24 16:08/21/24 16:08/21/24 16:08/21/24 16:08/21/24 16:08/21/24 16:08/21/24 00:55 Narrative Exam GENERAL: A&Ox3 . Awake, Not in acute distress NEURO: no focal neurological deficits HEENT: Atraumatic, Normocephalic. mucous membranes moist. Eyes open, symmetrical, & clear HEART: Normal Heart Sounds LUNGS: Clear to auscultation with no wheezing or crackles. ABDOMEN: soft, non-distended, non-tender, bowel sounds heard, no guarding or rebound tenderness SKIN: No Rash or ecchymoses EXTREMITIES: No edema, tenderness, able to move all 4 extremities, pedal pulses palpated Results Labs 08/22/24 04:44 08/22/24 01:15 Labs: Short CBC 08/20/24 08/21/24 Range/Units 19:31 05:27 WBC 12.5 H 8.5 (3.6-11.0) Thou/mm3 Hgb 14.9 12.1 D (12.0-16.0) g/dL Hct 44.0 36.5 (36.0-46.0) % Plt Count 308 D 248 D (140-440) Thou/mm3 BMP 08/20/24 08/21/24 08/21/24 19:31 00:58 05:27 Sodium 143 145 Potassium 3.4 3.4 4.4 D Chloride 108 H 112 H Carbon Dioxide 19.1 L 26.6 BUN 11 10 Creatinine 1.0 0.7 Glucose 175 H 95 D Calcium 10.8 H 9.3 D Cardiac Enzymes 08/20/24 08/20/24 Range/Units 19:31 22:05 Troponin I < 0.020 < 0.020 (0.0-0.045) ng/mL Liver Function 08/20/24 08/21/24 Range/Units 19:31 05:27 Total Bilirubin 0.9 0.6 (0.3-1.2) mg/dL AST 21 17 (0-34) U/L ALT 10 8 L (10-49) U/L Alkaline Phosphatase 66 52 D (46-116) U/L Albumin 5.1 H 4.2 D (3.4-4.8) gm/dL Urine 08/20/24 Range/Units 20:32 Urine Color Yellow (Lt Yel-Yel) Urine Clarity Turbid A (Clear/Hazy) Urine pH 6.0 (5.0-7.0) Ur Specific [place] 1.033 (1.001-1.035) Urine Protein 2+ A (Neg - Trace) Urine Glucose (UA) Trace (Negative) Quality Measures Quality Measures none Medications Home Medications and Allergies Home Medications ?Medication ?Instructions ?Recorded ?Confirmed ?Type alprazolam 1 mg tablet 1 mg PO DAILY PRN Anxiety 07/09/24 08/21/24 History buspirone 15 mg tablet 15 mg PO HS 07/09/24 08/21/24 History Allergies Allergy/AdvReac Type Severity Reaction Status Date / Time codeine Allergy Severe Hives Verified 08/20/24 18:41 Penicillins Allergy Severe Hives Verified 08/20/24 18:41 Visit Medications Acetaminophen (Acetaminophen 325 Mg Tablet) 650 mg PO Q6H PRN PRN Reason: Fever >101.5 Stop: 09/20/24 00:25 Acetaminophen (Acetaminophen 325 Mg Tablet) 650 mg PO Q6H PRN PRN Reason: PAIN SCALE 1-3 (mild Stop: 09/20/24 00:25 Al Hydrox/Mg Hydrox/Simethicone (Mg Hyd/Al Hyd/Nohelia (Maalox Reg) Susp 30 Ml Udc) 30 ml PO Q6H PRN PRN Reason: Indigestion Stop: 09/20/24 00:25 Alprazolam (Alprazolam 0.25 Mg Tablet) 0.25 mg PO TID PRN PRN Reason: ANXIETY Stop: 08/26/24 16:08 Last Admin: 08/21/24 17:33 Dose: 0.25 mg Buspirone HCl (Buspirone Hcl 5 Mg Tablet) 15 mg PO BID [facility] Stop: 09/20/24 11:24 Last Admin: 08/21/24 12:21 Dose: 15 mg Capsaicin (Capsaicin Cr 60 Gm Tube) 0 gm TOP TID [facility] Stop: 09/20/24 05:59 Last Admin: 08/21/24 16:08 Dose: Not Given Duloxetine HCl (Duloxetine Hcl 30 Mg Capsule) 30 mg PO QDAY [facility] Stop: 09/20/24 16:14 Last Admin: 08/21/24 16:23 Dose: Not Given Heparin Sodium (Porcine) (Heparin Sod Inj 5000 Unit/Ml Vial) 5,000 unit SC Q12H [facility] Stop: 09/04/24 08:59 Last Admin: 08/21/24 09:16 Dose: 5,000 unit Pantoprazole Sodium (Pantoprazole Inj 40 Mg Vial) 40 mg IVP QDAY [facility] Stop: 09/21/24 08:59 Prochlorperazine Edisylate (Prochlorperazine Inj 5 Mg/Ml Vial 2 Ml) 5 mg IV Q6H PRN; Protocol PRN Reason: NAUSEA OR VOMITING Stop: 09/20/24 16:14 Last Admin: 08/21/24 17:34 Dose: 5 mg Scopolamine (Scopolamine 1 Mg Tdsy) 1 mg TOP Q3D PRN; Protocol PRN Reason: Nausea/Vomiting Stop: 09/20/24 00:44 Last Admin: 08/21/24 09:15 Dose: 1 mg Sennosides (Senna Tablet) 1 tab PO QDAY PRN; Protocol PRN Reason: constipation Stop: 09/20/24 00:25 Discontinued Medications Buspirone HCl (Buspirone Hcl 5 Mg Tablet) 15 mg PO BID JANET Stop: 09/20/24 20:59 Magnesium Sulfate/Dextrose (Magnesium Sulfate Ivpb) 1 gm in 100 mls @ 100 mls/hr IV X1 ONE Stop: 08/20/24 23:37 Last Infusion: 08/21/24 00:30 Dose: Infused Sodium Chloride (Ns) 1,000 mls @ 999 mls/hr IV .Q1H1M ONE Stop: 08/20/24 23:40 Last Infusion: 08/21/24 00:17 Dose: Infused Ceftriaxone Sodium/Dextrose (Rocephin/D5w 1gm Iv Premix) 50 mls @ 100 mls/hr IV X1 ONE Stop: 08/20/24 23:11 Last Infusion: 08/20/24 23:32 Dose: Infused Lorazepam (Lorazepam 0.5 Mg Tablet) 1 mg PO X1 ONE Stop: 08/20/24 18:56 Last Admin: 08/20/24 19:13 Dose: 1 mg Lorazepam (Lorazepam 2 Mg/Ml Vial) 2 mg IVP X1 ONE Stop: 08/20/24 22:40 Last Admin: 08/20/24 22:56 Dose: 2 mg Magnesium Oxide (Magnesium Oxide 400 Mg Tablet) 400 mg PO X1 ONE Stop: 08/20/24 22:39 Metoclopramide HCl (Metoclopramide Inj 5 Mg/Ml Vial 2 Ml) 10 mg IM X1 ONE; Protocol Stop: 08/20/24 18:57 Last Admin: 08/20/24 19:14 Dose: 10 mg Pantoprazole Sodium (Pantoprazole 40 Mg Tablet) 40 mg PO QDAY JANET Stop: 09/20/24 08:59 Last Admin: 08/21/24 09:15 Dose: 40 mg Potassium Chloride (Potassium Chloride 20 Meq Tabcr) 40 meq PO X1 ONE Stop: 08/20/24 22:37 Last Admin: 08/20/24 22:58 Dose: 40 meq Potassium Chloride (Potassium Chloride 10% 20 Meq/15 Ml Udc) 40 meq PO X1 ONE Stop: 08/21/24 01:29 Last Admin: 08/21/24 02:15 Dose: 40 meq Prochlorperazine Maleate (Prochlorperazine Maleate 5 Mg Tablet) 5 mg PO Q6HR PRN PRN Reason: NAUSEA OR VOMITING Stop: 09/20/24 11:19 Assessment & Plan Plan Ms. Van is a 63-year-old female with past medical history significant for torsade ( requiring multiple defibrillations/shocks -around 17 times shocks/defibrillation) anxiety disorder presented to the ED for intractable nausea and vomiting. #Intractable nausea and vomiting -Patient states her nausea vomiting was provoked by her anxiety as her daughter went into labor patient also uses marijuana approximately 3 times a week so -Patient states she has had continuous vomiting every 30 minutes from 5 PM to 3 AM -Primary team has started her on scopolamine patch as needed and capsaicin topical 3 times a day. -Avoid anti nausea medications that would cause QT prolongation patient has a history of torsades #History of Torsades de pointes -Patient has history of torsade the pointes, for which she was shocked/defibrillation 17 times -EKG from this admission QRS complexes 133 and QT 443 -Patient currently denies chest pain, pressure, palpitations, dizziness Echo findings from 03/23/2023 include: LV mild to moderately dilated. Difficult to evaluate LV function given that the patient is tachycardic and also and frequent arrhythmia. Overall LV function appears to be mildly reduced with an EF of around 45%. Will need to reevaluate later after the arrhythmia has been treated moderately dilated. Normal RV size and function Mild MR, Trace TR. No pericardial effusion Cardiac catheterization done on 0 03/26/23 include: Torsades [employer] Roni requiring multiple defibrillation shocks [at least 10-12 on the day of admission]- LHC showed normal coronaries without any angiographically significant obstruction. 2. LVEF was low normal at 50 to 55% and normal LVEDP of 10 mmHg. -Avoid any QT prolongation agents -Keep potassium above 4 and magnesium above 2 at all times #Mild leukocytosis with WBC of 12.5, likely reactive leukocytosis in the setting of intractable vomiting as repeat WBC is 8.5 Assessment and plan discussed with my attending physician Dr. Kamlesh Collins (PGY-1)- Internal medicine resident Attending Provider Attestation/Addendum I have personally seen and examined the patient separately on the above date of service and discussed the plan of care with the resident. I reviewed the resident Dr. Conrado Collins consultation progress note and agree with the resident findings and plan in the note above and have also edited the documentation to reflect my findings and plan. 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 Patient well-known to me from previous admission in March 2023 when she had the torsades depointis with electrical storm requiring at least 15-17 shocks and eventually controlled with isoproterenol drip as well as lidocaine drip in the setting of prolonged QTc of around 550 ms and severe electrolyte abnormalities including hypokalemia hypomagnesemia. Patient never followed up in the office with me in the now has been having labile symptoms over the weekend and tried to contact my office for scheduling an appointment but her symptoms got worse with palpitations or heart racing and hence came to the emergency department for further evaluation. Patient daughter apparently went into labor and left lower anxiety and became extremely nauseous and started vomiting repeatedly. Patient has continued to have vomiting every few minutes and also noted some palpitations along with heart racing which very rare that she will be back in the previous situation and hence came to the emergency department. Patient also noticed some worsening shortness of breath over the past few days and is unable to walk much even in her apartment. Denies any Leg swelling or orthopnea or PND. Denies any kind of dizziness falls or syncope. Denied any kind of chest pain or chest pressure. Patient does complain of palpitations as noted above. Denies any Fever or chills or cough or sputum production. In the emergency department BP 154/103, HR 88, RR 28, normal saturations on room air. WBC 12.5 improved to 8.5 Hb 12.1 platelets 328 and now 248, NA 143, K 3.4, BUN 11, CR 1.1, 2 sets of troponins negative, normal LFTs, albumin. EKG on admission showed normal sinus rhythm at 92 bpm with QTc of 480 ms and IVCD with nonspecific ST-T changes. Chest x-ray is negative for any acute pathology. Patient admitted for further evaluation of the nausea vomiting as well as the palpitations and shortness of breath. Assessment and plan: 1. Intractable nausea and vomiting 2. Palpitations 3. Shortness of breath 4. History of torsade de pointes in the setting of prolonged QTc from nausea and vomiting as well as severe electrolyte abnormalities including hypokalemia and hypomagnesemia requiring multiple shocks in March 2023 5. Normal coronaries by cardiac cath in March 2023 6. Low normal LVEF with an EF of around 50% 7. Obesity 8. History of chronic marijuana abuse 9. Remote history of methamphetamine use when patient was young 10. Anxiety disorder Patient presents with intractable nausea and vomiting as mentioned in the HPI and no clear cause at the present point of time. Primary team working up the same and could be related to have a chronic marijuana abuse with hyperemesis syndrome versus intra-abdominal pathology. On admission patient was dehydrated and hemoconcentrated on the labs along with elevated abnormalities which are appropriately replaced and patient was given IV fluids and she had poor oral intake prior to presentation. Patient did complain of palpitations along with the racing of the heartbeat with a severe nausea and vomiting. Patient was worried that she will again have the episode of erythemic as she had previously which required multiple shocks. Patient has a diagnosis of torsades with electrical storm in March 2023 requiring multiple defibrillations and eventually improved with isoproterenol as well as lidocaine and aggressive repletion of electrolytes as patient had hypokalemia, hypomagnesemia in the setting of nausea and vomiting. On admission patient's QTc was 480 ms. Avoid QT prolonging agents for the patient and use Phenergan if required for vomiting. On admission. Potassium was only 3.4 and was aggressively replaced and is at 4.4. Recommend to aggressively place magnesium also and keep it more than 2.4 at all times Recommend to check QTc daily for now for monitoring it. Recommend to aggressively treat the nausea and vomiting for the patient As mentioned before patient never followed up in the clinic and is now requesting for a follow-up and we will continue to follow her up as outpatient once her acute episode in the hospital improves. Recommend to start metoprolol XL 25 mg once daily for the patient if BP permissible and continue to monitor the blood pressure and heart rate for the patient. Continue to monitor telemetry closely for any arrhythmias. Recommend to repeat EKG in the morning Patient has new complaints of shortness of breath on exertion and unable to walk well even in her apartment. On examination patient does not appear to be fluid overloaded and chest x-ray did not show any evidence of any vascular congestion. Recommend to check a BNP. Previous echocardiogram March 2023 and showed low normal function mildly dilated LV but overall poor images and the EF was around 45-50% in the cardiac catheterization showed an EF of 50-55% She does not have any history of ischemic cardiomyopathy as the recent cardiac cath in March 2022 showed normal coronaries without any significant obstruction. Patient does have a history of remote metabolism and also present marijuana abuse and could have nonischemic etiology. Recommend to repeat an echocardiogram to reevaluate the patient's EF for present moment. Will need to also evaluate for diastolic dysfunction and any regional wall motion abnormalities. Patient has also had significant history of anxiety disorder. If she has additional anxiety propranolol can also be considered as an alternative choice for the patient. Du Whitlock M.D. Interventional Cardiology
[2024-08-22] VITALS (8 sets, daily range): BP systolic 106–155; BP diastolic 62–78; PULSE 60–105; RESP 16–98; TEMP 36.1–36.4; O2SAT 96–98
--- NOTE | 2024-08-22 01:15 | PC.NURSE ---
pt's HR in the 90s with PVCs, BBB, and Bigeminy, Dr. Munoz was made aware with new orders fro pt, see MAR.
[2024-08-22 01:40] LABS: Magnesium 2.1 mg/dL (1.6-2.6); Potassium 3.7 mMol/L (3.4-5.1)
[2024-08-22] MEDS: POTASSIUM CHLORIDE 10% 20 MEQ/15 ML UDC 40 MEQ PO (05:05)
[2024-08-22 05:29] LABS: Basophils # (Auto) 0.1 Thou/mm3 (0.0-0.2); Basophils % (Auto) 1 % (0-2.5); Eosinophils # (Auto) 0.1 Thou/mm3 (0.0-0.5); Eosinophils % (Auto) 1 % (0-10); Hematocrit 38.3 % (36.0-46.0); Hemoglobin 12.7 g/dL (12.0-16.0); Immature Granulocytes % (Auto) 0 % (0-0); Immature Granulocytes Auto 0.03 Thou/mm3 (0.00-0.00); Lymphocytes # (Auto) 2.7 Thou/mm3 (1.0-4.8); Lymphocytes % (Auto) 33 % (10-50); Mean Corpuscular HGB Conc 33.2 g/dl (31.0-37.0); Mean Corpuscular Hemoglobin 28.2 pg (25.0-35.0); Mean Corpuscular Volume 85 fL (80-100); Monocytes # (Auto) 0.6 Thou/mm3 (0.0-0.8); Monocytes % (Auto) 7 % (0-12); Neutrophils # (Auto) 4.8 Thou/mm3 (1.8-7.7); Neutrophils % (Auto) 58 % (37-80); Nucleated Red Blood Cell % 0 /100 WBC (0); Platelet Count 211 Thou/mm3 (140-440); RDW Standard Deviation 40.4 fL (36.4-46.3); White Blood Count 8.2 Thou/mm3 (3.6-11.0)
[2024-08-22 06:40] LABS: Alanine Aminotransferase 9 U/L (10-49); Albumin, Serum 4.2 gm/dL (3.4-4.8); Albumin/Globulin Ratio 1.9 (1.2-2.2); Alkaline Phosphatase 55 U/L (46-116); Anion Gap 8 (7-16); Aspartate Amino Transferase 14 U/L (0-34); BUN/Creatinine Ratio 13 Ratio (12-20); Bilirubin,Total 0.8 mg/dL (0.3-1.2); Blood Urea Nitrogen 9 mg/dL (9-23); Calcium 9.3 mg/dL (8.3-10.6); Calcium (Corrected) 9.3 mg/dL (8.5-10.1); Carbon Dioxide 25.8 mMol/L (20.0-31.0); Chloride 105 mMol/L (98-107); Creatinine (Component) 0.7 mg/dL (0.6-1.3); Estimated Creatinine Clearance 87.1 mL/min (>60); Globulin 2.2 gm/dL (2.3-3.5); Glucose 85 mg/dL (74-106); Magnesium 1.9 mg/dL (1.6-2.6); Osmolality,Calculated 275 (275-295); Potassium 3.4 mMol/L (3.4-5.1); Sodium 139 mMol/L (136-145); Total Protein 6.4 gm/dL (5.7-8.2); eGFR > 60 See Note
--- NOTE | 2024-08-22 08:38 | ECHO_ITS ---
Transthoracic Echo Report Ht (in): 69 Wt (lb): 170 Exam Location: Echo Lab Status: Inpatient Pluck Separator: SHELIA Reyes^^^^ Indications: Procedure Performed: BP: 134 / 82 HR: 62 Rhythm: PVC's Technical Quality: Fair MEASUREMENTS (Male / Female) Normal Values 2D ECHO LV Diastolic Diameter PLAX 4.6 cm 4.2 - 5.9 / 3.9 - 5.3 cm LV Systolic Diameter PLAX 3.4 cm IVS Diastolic Thickness 0.9 cm 0.6 - 1.0 / 0.6 - 0.9 cm LVPW Diastolic Thickness 1.1 cm 0.6 - 1.0 / 0.6 - 0.9 cm LV Relative Wall Thickness 0.5 RV Internal Dim ED PLAX 3.1 cm LVOT Diameter 1.8 cm Aortic Root Diameter 3.2 cm LA Systolic Diameter LX 3.5 cm 3.0 - 4.0 / 2.7 - 3.8 cm LV Ejection Fraction MOD 4C 41.9 % LV Cardiac Index MOD 4C 1723.2 cm?/min?m? LV Ejection Fraction 4C AL 44.5 % LV Cardiac Index 4C AL 1780.2 cm?/min?m? Ascending Aorta Diameter 3.3 cm DOPPLER MV Peak Velocity 68.9 cm/s MV Peak Gradient 1.9 mmHg MV Mean Velocity 54.5 cm/s MV Mean Gradient 1.0 mmHg MV Area PHT 3.8 cm? MR Peak Velocity 502.0 cm/s MR Peak Gradient 100.8 mmHg Mitral E Point Velocity 46.1 cm/s Mitral A Point Velocity 60.1 cm/s Mitral E to A Ratio 0.8 LV E' Lateral Velocity 12.0 cm/s Mitral E to LV E' Lateral Ratio 3.8 LV E' Septal Velocity 6.5 cm/s Mitral E to LV E' Septal Ratio 7.1 TR Peak Velocity 236.5 cm/s TR Peak Gradient 22.4 mmHg PV Peak Velocity 107.5 cm/s PV Peak Gradient 4.6 mmHg RVOT Peak Velocity 63.5 cm/s FINDINGS Left Ventricle The left ventricular ejection fraction is mildly decreased, estimated at 40- 45%. There is grade I diastolic dysfunction of the left ventricle (impaired relaxation pattern). Right Ventricle The right ventricle is normal in size and systolic function. The estimated right ventricular systolic pressure, 28 mmHg. Left Atrium The left atrium is normal by two-dimensional, color flow and Doppler imaging with no structural abnormalities, no thrombus formation present. Right Atrium The right atrium is normal by two-dimensional imaging, color flow and Doppler imaging with no structural abnormalities, no thrombus formation present. Atrial Septum The interatrial septum appears normal with no evidence of a shunt. Aorta The aorta is normal by two-dimensional, color flow and Doppler interrogation. Mitral Valve Mild mitral annular calcification. Mild mitral regurgitation. Aortic Valve The aortic valve is trileaflet and normal to two-dimensional, color flow and Doppler interrogation. Tricuspid Valve There is mild tricuspid valve regurgitation. Pulmonic Valve Mild pulmonic valve regurgitation. Vessels The pulmonary artery appears normal. The inferior vena cava pulmonary and hepatic veins appear normal. Pericardium There is a small pericardial effusion located near the right atrium. CONCLUSIONS Indication: Arrhthymia, PVC's LV systolic function EF of 50-55% with Grade I Diastolic Dysfunction Normal RV size and function. Estimated RVSP of 28 mmHg. Mild MAC & mild MR . Mild TR. Mild PI Trace pericardial effusion without any evidence of cardiac tamponade. Du Whitlock (Electronically Signed) Final Date: 22 August 2024 21:57
[2024-08-22] MEDS: DULoxetine HCL 30 MG CAPSULE PO (08:48)
[2024-08-22] MEDS: HEPARIN SOD INJ 5000 UNIT/ML VIAL SC (08:49)
[2024-08-22] MEDS: PANTOPRAZOLE INJ 40 MG VIAL IVP (08:49)
[2024-08-22] MEDS: LACTOBACILLUS RHAMNOSUS 1 CAP PO (09:01)
[2024-08-22] MEDS: Magnesium Sulfate 2 GM Ivpb 2 GM/50 ML BAG IV (09:02)
[2024-08-22] MEDS: POTASSIUM CHLORIDE 20 mEq TABCR PO (09:02)
--- NOTE | 2024-08-22 09:49 | PD.RESPRO ---
Documentation for date of: 08/22/24 Subjective Subjective Interval history: 08/22: No acute overnight events reported patient seen and examined at bedside this morning patient's sister is also at bedside patient is currently getting echocardiogram done. Patient endorsed due to resolution of nausea and vomiting her last episode was around 1 PM and since she has not had any nausea or vomiting and patient was able to tolerate oral diet. Patient denies any chest pain or palpitations. Patient is counseled against marijuana use as it can cause or contribute to her vomiting. CBC and CMP is unremarkable potassium is 3.4 and magnesium is 1.9. Keep potassium above 4 and magnesium above 2 at all times patient has no other complaints. Exam Vital Signs Temp Pulse Resp BP Pulse Ox O2 Del Method O2 Flow Rate 97.0 F 69 17 114/68 98 Room Air 100 08/22/24 07:59 08/22/24 08:39 08/22/24 08:39 08/22/24 07:59 08/22/24 07:59 08/22/24 07:59 08/21/24 23:53 Narrative Exam GENERAL: A&Ox3 . Awake, Not in acute distress NEURO: no focal neurological deficits HEENT: Atraumatic, Normocephalic. mucous membranes moist. Eyes open, symmetrical, & clear HEART: Normal Heart Sounds LUNGS: Clear to auscultation with no wheezing or crackles. ABDOMEN: soft, non-distended, non-tender, bowel sounds heard, no guarding or rebound tenderness SKIN: No Rash or ecchymoses EXTREMITIES: No edema, tenderness, able to move all 4 extremities, pedal pulses palpated Objective Labs 08/22/24 04:44 08/22/24 04:44 Labs: Laboratory Results - last 24 hr 08/22/24 08/22/24 01:15 04:44 WBC 8.2 RBC 4.50 Hgb 12.7 Hct 38.3 MCV 85 MCH 28.2 MCHC 33.2 RDW Std Deviation 40.4 Plt Count 211 D Neut % (Auto) 58 Lymph % (Auto) 33 [place] % (Auto) 7 Eos % (Auto) 1 Baso % (Auto) 1 Neut # (Auto) 4.8 Lymph # (Auto) 2.7 [place] # (Auto) 0.6 Eos # (Auto) 0.1 Baso # (Auto) 0.1 Immature Gran # (Auto) 0.03 H Absolute Nucleated RBC 0.00 Immature Gran % 0 Nucleated RBC % 0 Sodium 139 Potassium 3.7 D 3.4 Chloride 105 Carbon Dioxide 25.8 Anion Gap 8 BUN 9 Creatinine 0.7 Estim Creat Clear Calc 87.1 eGFR > 60 BUN/Creatinine Ratio 13 Glucose 85 Calculated Osmolality 275 Calcium 9.3 Corrected Calcium 9.3 Magnesium 2.1 1.9 Total Bilirubin 0.8 AST 14 ALT 9 L Alkaline Phosphatase 55 Total Protein 6.4 Albumin 4.2 Globulin 2.2 L Albumin/Globulin Ratio 1.9 Quality Measures Quality Measures none Assessment & Plan Assessment Current Active Medications: Generic Name Dose Route Start Last Admin Trade Name Freq PRN Reason Stop Dose Admin Acetaminophen 650 mg 08/21/24 00:26 Acetaminophen 325 Mg Tablet PO 09/20/24 00:25 Q6H PRN Fever >101.5 Acetaminophen 650 mg 08/21/24 00:26 Acetaminophen 325 Mg Tablet PO 09/20/24 00:25 Q6H PRN PAIN SCALE 1-3 (mild Al Hydrox/Mg Hydrox/Simethicone 30 ml 08/21/24 00:26 Mg Hyd/Al Hyd/Nohelia (Maalox Reg) Susp 30 Ml Udc PO 09/20/24 00:25 Q6H PRN Indigestion Alprazolam 0.25 mg 08/21/24 16:09 08/21/24 17:33 Alprazolam 0.25 Mg Tablet PO 08/26/24 16:08 0.25 mg TID PRN Administration ANXIETY Buspirone HCl 15 mg 08/21/24 11:25 08/21/24 12:21 Buspirone Hcl 5 Mg Tablet PO 09/20/24 11:24 15 mg BID JANET Administration Capsaicin 0 gm 08/21/24 06:00 08/22/24 05:53 Capsaicin Cr 60 Gm Tube TOP 09/20/24 05:59 Not Given TID JANET Duloxetine HCl 30 mg 08/21/24 16:15 08/22/24 08:48 Duloxetine Hcl 30 Mg Capsule PO 09/20/24 16:14 30 mg QDAY JANET Administration Heparin Sodium (Porcine) 5,000 unit 08/21/24 09:00 08/22/24 08:49 Heparin Sod Inj 5000 Unit/Ml Vial SC 09/04/24 08:59 5,000 unit Q12H JANET Administration Magnesium Sulfate 2 gm in 50 mls @ 25 mls/hr 08/22/24 08:05 08/22/24 09:02 Magnesium Sulfate Ivpb IV 08/22/24 10:04 25 mls/hr X1 ONE Administration Lactobacillus Rhamnosus 1 cap 08/22/24 09:00 08/22/24 09:01 Lactobacillus Rhamnosus 1 Cap PO 09/21/24 08:59 1 cap BID JANET Administration Pantoprazole Sodium 40 mg 08/22/24 09:00 08/22/24 08:49 Pantoprazole Inj 40 Mg Vial IVP 09/21/24 08:59 40 mg QDAY JANET Administration Prochlorperazine Edisylate 5 mg 08/21/24 16:08 08/21/24 17:34 Prochlorperazine Inj 5 Mg/Ml Vial 2 Ml IV 09/20/24 16:14 5 mg Q6H PRN Administration NAUSEA OR VOMITING Protocol Scopolamine 1 mg 08/21/24 00:36 08/21/24 09:15 Scopolamine 1 Mg Tdsy TOP 09/20/24 00:44 1 mg Q3D PRN Administration Nausea/Vomiting Protocol Plan Ms. Van is a 63-year-old female with past medical history significant for torsade ( requiring multiple defibrillations/shocks -around 17 times shocks/defibrillation) anxiety disorder presented to the ED for intractable nausea and vomiting. #Intractable nausea and vomiting -Patient states her nausea vomiting was provoked by her anxiety as her daughter went into labor patient also uses marijuana approximately 3 times a week so -Patient states she has had continuous vomiting every 30 minutes from 5 PM to 3 AM -Primary team has started her on scopolamine patch as needed and capsaicin topical 3 times a day. -Avoid anti nausea medications that would cause QT prolongation patient has a history of torsades -recommend use of Phenergan if required for vomiting. #History of Torsades de pointes #palpitations -Patient has history of torsade the pointes, for which she was shocked/defibrillation 17 times -EKG from this admission QRS complexes 133 and QT 443 -Patient currently denies chest pain, pressure, palpitations, dizziness Echo findings from 03/23/2023 include: LV mild to moderately dilated. Difficult to evaluate LV function given that the patient is tachycardic and also and frequent arrhythmia. Overall LV function appears to be mildly reduced with an EF of around 45%. Will need to reevaluate later after the arrhythmia has been treated moderately dilated. Normal RV size and function Mild MR, Trace TR. No pericardial effusion Cardiac catheterization done on 0 03/26/23 include: Torsades De[employer]es [employer]oni requiring multiple defibrillation shocks [at least 10-12 on the day of admission]- LHC showed normal coronaries without any angiographically significant obstruction. 2. LVEF was low normal at 50 to 55% and normal LVEDP of 10 mmHg. -Avoid any QT prolongation agents -Keep potassium above 4 and magnesium above 2 at all times -recommend metoprolol XL 25mg daily if BP is permissible -EKG today : sinus rhythm with occational PVCs also noted on echo at bedside -repeat echo read pending - Pt will need to follow up outpatient with children's zoo caretaker to review the results #Shortness of breath -Pt states she has been have increasing shortness of breath, she is unable to walk across her apartment due to SOB. Pt denies Orthpnea or PND -BNP on admission was 147, pt did not appear to be fluid overloaded -chest x-ray did not show any evidence of any vascular congestion -repeat echo done, pending read #Mild leukocytosis - resolved -WBC of 12.5, likely reactive leukocytosis in the setting of intractable vomiting as repeat WBC is 8.5 Assessment and plan discussed with my attending physician Dr. Kamlesh Collins (PGY-1)- Internal medicine resident Attending Provider Attestation/Addendum I have personally seen and examined the patient separately on the above date of service and discussed the plan of care with the resident. I reviewed the resident Dr. Conrado Collins consultation progress note and agree with the resident findings and plan in the note above and have also edited the documentation to reflect my findings and plan. 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 Patient well-known to me from previous admission in March 2023 when she had the torsades depointis with electrical storm requiring at least 15-17 shocks and eventually controlled with isoproterenol drip as well as lidocaine drip in the setting of prolonged QTc of around 550 ms and severe electrolyte abnormalities including hypokalemia hypomagnesemia. Patient never followed up in the office with me in the now has been having labile symptoms over the weekend and tried to contact my office for scheduling an appointment but her symptoms got worse with palpitations or heart racing and hence came to the emergency department for further evaluation. Patient daughter apparently went into labor and left lower anxiety and became extremely nauseous and started vomiting repeatedly. Patient has continued to have vomiting every few minutes and also noted some palpitations along with heart racing which very rare that she will be back in the previous situation and hence came to the emergency department. Patient also noticed some worsening shortness of breath over the past few days and is unable to walk much even in her apartment. Denies any Leg swelling or orthopnea or PND. Denies any kind of dizziness falls or syncope. Denied any kind of chest pain or chest pressure. Patient does complain of palpitations as noted above. Denies any Fever or chills or cough or sputum production. In the emergency department BP 154/103, HR 88, RR 28, normal saturations on room air. WBC 12.5 improved to 8.5 Hb 12.1 platelets 328 and now 248, NA 143, K 3.4, BUN 11, CR 1.1, 2 sets of troponins negative, normal LFTs, albumin. EKG on admission showed normal sinus rhythm at 92 bpm with QTc of 480 ms and IVCD with nonspecific ST-T changes. Chest x-ray is negative for any acute pathology. Patient admitted for further evaluation of the nausea vomiting as well as the palpitations and shortness of breath. Assessment and plan: 1. Intractable nausea and vomiting 2. Palpitations 3. Shortness of breath 4. History of torsade de pointes in the setting of prolonged QTc from nausea and vomiting as well as severe electrolyte abnormalities including hypokalemia and hypomagnesemia requiring multiple shocks in March 2023 5. Normal coronaries by cardiac cath in March 2023 6. Low normal LVEF with an EF of around 50% 7. Obesity 8. History of chronic marijuana abuse 9. Remote history of methamphetamine use when patient was young 10. Anxiety disorder Patient presents with intractable nausea and vomiting as mentioned in the HPI and no clear cause at the present point of time. Primary team working up the same and could be related to have a chronic marijuana abuse with hyperemesis syndrome versus intra-abdominal pathology. On admission patient was dehydrated and hemoconcentrated on the labs along with elevated abnormalities which are appropriately replaced and patient was given IV fluids and she had poor oral intake prior to presentation. Patient did complain of palpitations along with the racing of the heartbeat with a severe nausea and vomiting. Patient was worried that she will again have the episode of erythemic as she had previously which required multiple shocks. Patient has a diagnosis of torsades with electrical storm in March 2023 requiring multiple defibrillations and eventually improved with isoproterenol as well as lidocaine and aggressive repletion of electrolytes as patient had hypokalemia, hypomagnesemia in the setting of nausea and vomiting. On admission patient's QTc was 480 ms. Avoid QT prolonging agents for the patient and use Phenergan if required for vomiting. On admission. Potassium was only 3.4 and was aggressively replaced and is at 4.4. Recommend to aggressively place magnesium also and keep it more than 2.4 at all times Recommend to check QTc daily for now for monitoring it. Recommend to aggressively treat the nausea and vomiting for the patient As mentioned before patient never followed up in the clinic and is now requesting for a follow-up and we will continue to follow her up as outpatient once her acute episode in the hospital improves. Recommend to start metoprolol XL 25 mg once daily for the patient if BP permissible and continue to monitor the blood pressure and heart rate for the patient. Continue to monitor telemetry closely for any arrhythmias. Recommend to repeat EKG in the morning Patient has new complaints of shortness of breath on exertion and unable to walk well even in her apartment. On examination patient does not appear to be fluid overloaded and chest x-ray did not show any evidence of any vascular congestion. Recommend to check a BNP. Previous echocardiogram March 2023 and showed low normal function mildly dilated LV but overall poor images and the EF was around 45-50% in the cardiac catheterization showed an EF of 50-55% She does not have any history of ischemic cardiomyopathy as the recent cardiac cath in March 2022 showed normal coronaries without any significant obstruction. Patient does have a history of remote metabolism and also present marijuana abuse and could have nonischemic etiology. Recommend to repeat an echocardiogram to reevaluate the patient's EF for present moment. Will need to also evaluate for diastolic dysfunction and any regional wall motion abnormalities. Patient has also had significant history of anxiety disorder. If she has additional anxiety propranolol can also be considered as an alternative choice for the patient. 08/22/2024: Echocardiogram completed on 08/22/2024 showed low normal LV function with an EF of 50 to 55% with grade 1 diastolic dysfunction. Normal RV size and function. Estimated RVSP of 28 mmHg. Mild MAC, mild MR, mild TR. Trace pericardial effusion without any evidence of cardiac tamponade. Labs reviewed today and potassium is low at 3.4 and magnesium is low at 1.9 and recommend to aggressively replace 4 g magnesium sulfate IV and at least 60 mEq of oral potassium prior to discharging the patient. Patient counseled extensively to stop the marijuana abuse to as it can lead to hyperemesis syndrome. Overall patient improved with her nausea and vomiting and wants to return home and recommended to follow-up in the office in couple of weeks. Du Whitlock M.D. Interventional Cardiology
--- NOTE | 2024-08-22 10:22 | EKG_ITS ---
[facility] Test Date: 2024-08-22 Pat Name: MOUNIKA PASTRANA Department: Room: S374A Gender: Female [employer]: ROSA : 1960 Requested By: Matteo Rosen Order Number: [id number] Reading MD: Matteo Rosen Measurements Intervals [place] Rate: 73 P: 81 ND: 150 QRS: 54 QRSD: 118 T: -40 QT: 417 QTc: 461 Interpretive Statements SINUS RHYTHM WITH OCCASIONAL VENTRICULAR PREMATURE COMPLEXES LOW QRS VOLTAGE IN PRECORDIAL LEADS [QRS DEFLECTION < 1.0 mV IN CHEST LEADS] SEPTAL MYOCARDIAL INFARCTION , PROBABLY OLD [40+ ms Q WAVE IN V1/V2] MODERATE T-WAVE ABNORMALITY, CONSIDER INFERIOR ISCHEMIA [-0.1+ mV T WAVE IN II/aVF] Compared to ECG 08/20/2024 22:24:50 Low QRS voltage now present Myocardial infarct finding now present T-wave abnormality now present Possible ischemia now present Intraventricular conduction delay no longer present /store/S0/[id number]/[id number].pdf
[2024-08-22] MEDS: ALPRazoLAM 0.25 MG TABLET PO (11:25)
--- NOTE | 2024-08-22 15:00 | ESDS_ITS ---
<Statement entered by Juma Pineda MD - 08/22/24 16:46> Patient was examined with the team including attending physician. Note reviewed, I agree with the discharge plan as documented. - Juma Pineda M.D. PGY2 Planned Discharge Date 08/22/24 DS: Providers Provider Date of admission: 08/21/24 00:26 Primary care physician: Physician No Primary/Family Admitting Provider: Ajay Bolivar MD Attending Provider on Admission: Du Whitlock MD Consults: 08/22/24 10:23 Consult to Cardiology Routine Comment: Consulting Provider: Du Whitlock Attending Provider on DC: Matteo Rosen MD Discharging Provider: Matteo Rosen MD DS: Diagnosis Problem List Completed Was Problem List Reviewed/Reconciled?: Yes Hospital Course Hospital Course Hospital course: The patient is a 63-year-old female with a past medical history of torsades de pointes, evaluation of breast lumpectomy presented to the ED on 08/21/2024 with complaints of nausea and vomiting. Per patient, she had been persistent vomiting and had more than 20 episodes prior to visit to the ED. Patient reports that she uses marijuana frequently and try to use this will be her symptoms which did not work. In ED, patient was mildly hypertensive, but afebrile and otherwise stable. Labs are significant for leukocytosis and U-Tox was positive for marijuana. An EKG showed prolonged QTc of 478 and patient was admitted for management of intractable nausea and vomiting. Due to history of torsades, QT prolonging agents were avoided and she was started on capsaicin, scopolamine patch and Compazine. Today, the patient is clinically and hemodynamically stable and has had no more episodes of vomiting, she has been able to tolerate oral diet without any more episodes. She was also evaluated by cardiology and will continue to follow-up. She is medically cleared for discharge and she will follow-up with her PCP within 1 week of discharge as well as cardiology. Compazine was added for nausea and vomiting as well as duloxetine for anxiety and pain. #Intractable nausea and vomiting #History of torsades de pointes #History of anxiety Discharge instructions: Follow up with your PCP within 1 week of discharge. If you don't have a PCP, you may come to the [facility] at [facility] [address]. Call [phone] for an appointment Follow up with manager drilling Dr Whitlock within 2 weeks of discharge Avoid using Marijuana as much as possible Take duloxetine 30mg for anxiety and pain Take compazine for nausea and vomiting Return to the ED if your symptoms worsen Case was discussed with Dr Pineda PGY-2 and attending physician, Dr Kyleigh Rosen MD PGY-1 Disclaimer: This note was dictated by speech recognition. Minor errors in awake overnight counselor may be present due to voice recognition software. Time Spent with Patient Time attestation: Total time spent providing and/or coordinating discharge services: Exam Vital Signs Temp Pulse Resp BP Pulse Ox O2 Del Method O2 Flow Rate 97.4 F 105 H 16 155/78 H 97 Room Air 100 08/22/24 11:50 08/22/24 11:50 08/22/24 11:50 08/22/24 11:50 08/22/24 11:50 08/22/24 11:50 08/21/24 23:53 Narrative Exam GENERAL: AAOX3 NEURO: INTERNET SALES CONSULTANT grossly intact, moves extremities x4 HEENT: Moist mucosa. Eyes open, symmetrical, & clear CARDIO: No chest pain on palpation. Heart RRR, no obvious murmurs PULM: No noted coughing/dyspnea. Lungs CTA B/L GI: Abdomen soft, nondistended, no pain on palpation. BSx4 URO/HOME APPLIANCE TECHNICIAN:: No further abnormalities noted. SKIN/MSK/EXT: No wounds/rashes/edema/amputations, no pain on palpation. Pedal pulses present B/L Discharge Plan Plan Patient Disposition: HOME (Self Care) Prescriptions/Referrals Prescriptions/Med Rec: New prochlorperazine maleate [Compazine] 5 mg tablet 5 mg PO TID PRN (Reason: nausea and vomiting) Qty: 30 0RF duloxetine 30 mg capsule,delayed release(DR/EC) 30 mg PO QDAY Qty: 30 0RF Continued alprazolam 0.5 mg tablet 0.5 mg PO BID PRN (Reason: anxiety) Qty: 6 0RF Discontinued buspirone 15 mg tablet 15 mg PO HS alprazolam 1 mg tablet 1 mg PO DAILY PRN (Reason: Anxiety) Patient Comments: TAKE 1 TABLET BY MOUTH EVERY DAY, FOR 60 DAYS scopolamine base 1 mg over 3 days patch 3 day 1 mg topical Q3D Qty: 24 0RF Referrals: Du Whitlock MD [Physician] - No Primary/Family,Physician [Primary Care Provider] - Patient/Caregiver Discharge Instructions Other Discharge Activity Instructions:: Follow up with your PCP within 1 week of discharge. If you don't have a PCP, you may come to the [facility] at [address], [place]. Call [phone] for an appointment Follow up with manager drilling Dr Whitlock within 2 weeks of discharge Avoid using Marijuana as much as possible Take duloxetine 30mg for anxiety and pain Take compazine for nausea and vomiting Return to the ED if your symptoms worsen Education Materials: Dehydration, ED Vomiting (Adult) Print Language: Urdu Stand Alone Forms: Ethel Award Info., Patient Portal Info Letter, Work/Release Restrictions Discharge Order Discharge Orders: Discharge (Routine); Ordered 08/22/24 Ordered By: Matteo Rosen Quality Discharge Quality Measures VTE prophylaxis MD Attestestation MD Attestation I reviewed labs, imaging, EKG, home medications and prior available records. Face to face evaluation was performed by me. I have personally examined the patient and discussed assessment and plan with the IM team. I reviewed the resident note and agree with the plan with exceptions as below. Intractable nausea and vomiting History of prolonged QTc Marijuana use Anxiety Encourage oral hydration Avoid marijuana use Compazine for vomiting given the borderline QTc Xanax as needed for anxiety Start duloxetine for pain/anxiety Time spent is 40 minutes. More than 50% of the time was spent on patient education and coordination of care.
== END 2024-08-22 15:00 | disposition home or self-care (01) ==
LOC: SERX 20:11 → S3SX 08-21 08:14 → SERHOLD 08-22 06:04
PROVIDERS: Admitting Provider Student in an Organized Health Care Education/Training Program; Emergency Provider Emergency Medicine; Visit Provider Internal Medicine Cardiovascular Disease
DX: R11.2 Nausea with vomiting, unspecified (principal); I49.3 Ventricular premature depolarization; I31.39 Other pericardial effusion (noninflammatory); I10 Essential (primary) hypertension; F41.9 Anxiety disorder, unspecified; F12.10 Cannabis abuse, uncomplicated; E87.8 Other disorders of electrolyte and fluid balance, not elsewhere classified; E87.6 Hypokalemia; E86.0 Dehydration; E83.52 Hypercalcemia; E83.42 Hypomagnesemia; D72.829 Elevated white blood cell count, unspecified; E66.9 Obesity, unspecified; Z68.25 Body mass index [BMI] 25.0-25.9, adult
CPT/HCPCS: 36415; 71046; 80053; 80307; 81001; 83735; 83880; 84132; 84484; 85025; 85610; 85730; 87400; 87811; 93005; 93306; 96365; 96366; 96368; 96372; 96375; 99285; G0378; J0696; J0780; J1643; J2060; J2470; J2765; J3475; J7030; A9270

== ENCOUNTER 2024-08-31 08:56 | Emergency (ER) | payer BC, SELFPAY ==
[2024-08-31 09:13] VITALS: BP 129/62; PULSE 88; RESP 17; TEMP 36.5; O2SAT 98
--- NOTE | 2024-08-31 09:25 | EDNOTE_ITS ---
ED Anxiety RME/HPI General Chief Complaint: Arrhythmia/Palpitations Stated Complaint: HEART IS RACING Time Seen by Provider: 08/31/24 09:13 Arrival date/time: 08/31/24 08:56 RME / HPI RME / HPI narrative: 63 year old female with history of Torsades in 2022 and anxiety presents to the ED for evaluation of anxiety, nausea, and vomiting beginning at 3pm yesterday after receiving a phone call from her daughter. States she has been persistently vomiting since 3pm yesterday and unable to control anxiety at home, prompting ED visit. Patient mentioned she was previously on Alprazolam that was stopped by her PCP ~ 6 months ago. Was started on Buspirone ~ 1 year ago however was stopped cold turkey 1 week ago and started on Inderal by her design technology teacher. Related Data Previous Rx's ?Medication ?Instructions ?Recorded alprazolam 0.5 mg tablet 0.5 mg PO BID PRN anxiety #6 tabs 07/10/24 duloxetine 30 mg capsule,delayed 30 mg PO QDAY #30 cap s 08/22/24 release prochlorperazine maleate 5 mg 5 mg PO TID PRN nausea a nd 08/22/24 tablet (Compazine) vomiting #30 tabs Allergies Allergy/AdvReac Type Severity Reaction Status Date / Time codeine Allergy Severe Hives Verified 08/31/24 08:58 Penicillins Allergy Severe Hives Verified 08/31/24 08:58 Review of Systems Review of Systems Narrative Review of Systems: Gen: No fever, no chills, no weight loss EYES: No discharge, no visual changes, no pain HEENT: No ear pain, no congestion, no sore throat PULM: no shortness of breath, no cough, no congestion CV: No chest pain, no dyspnea on exertion, no palpitations, no chest tightness GI: + nausea, +vomiting, no diarrhea, no pain, no constipation : No frequency, no urgency,? no dysuria Musc/skel: No joint pain, no back pain Skin: No rash, no ecchymosis, no lesions Psyc: +anxious. No hallucinations, no depression Neuro: No weakness, no headache Past Medical History Past Medical History CARDIAC: Positive Cardiac Disorders (episodes of Torsads in 2022) PSYCHO/SOCIAL: Positive Recreational Drug Use and Anxiety OTHER HISTORY: Positive Hospitalization Family History FAMILY HISTORY: Positive Family Cancer Surgical History SURGICAL: Positive Lumpectomy and Tubal Ligation Social History SMOKING STATUS: Never smoker SECOND HAND EXPOSURE: No ED Exam Narrative Physical exam: GENERAL APPEARANCE: AxOx4, anxious, demanding, speaking full sentences with pressured speech, actively vomiting HEENT: NC, AT. MMM. EOMI, clear conjunctiva, oropharynx clear. NECK: Supple without lymphadenopathy. No stiffness or restricted ROM. HEART: Normal rate and regular rhythm, normal S1/S1, no m/r/g LUNGS: CTAB, moving air well. No crackles or wheezes are heard. ABDOMEN: Soft, nontender, nondistended with good bowel sounds heard. BACK: No midline C/T/L spine pain or deformity, No CVAT, no obvious deformity. EXTREMITIES: Without cyanosis, clubbing or edema. MUSCULOSKELETAL: FROM of all major joints, no chest tenderness NEUROLOGICAL: Grossly nonfocal. Alert and oriented, moving all 4 extremities. CN not formally tested but appear grossly intact. Skin: Warm and dry without any rash. Course Quality Measures none Orders Category Date Time Status EKG (ED ONLY) *Do not use* NOW Care 08/31/24 08:58 Completed EKG (ED Only) Stat Exams 08/31/24 08:58 Ordered CBC Stat Lab 08/31/24 09:17 Ordered CMP [Comprehensive Metabolic Panel] Stat Lab 08/31/24 09:17 Ordered Magnesium Stat Lab 08/31/24 09:17 Ordered DiphenhydrAMINE INJ [Benadryl Inj] Med 08/31/24 09:17 Discontinued 50 mg IV X1 ONE LORazepam [Ativan Inj] Med 08/31/24 09:17 Discontinued 2 mg IVP X1 ONE Reevaluation(s) Reevaluation #1: Patient reported improvement after medications. We reviewed all the results, analysis, and treatment plans. Patient is amenable to discharge. Strict return precautions were outlined. Patient was discharged in stable condition. Time: 11:20 Vital Signs Vital signs: Vital Signs Temperature 97.7 F 08/31/24 09:13 Pulse Rate 88 08/31/24 09:13 Respiratory Rate 17 08/31/24 09:13 Blood Pressure 129/62 08/31/24 09:13 Pulse Oximetry (%) 98 08/31/24 09:13 Oxygen Delivery Method Aerosol Mask 08/31/24 09:13 Anxiety MDM Narrative MDM Narrative: I, Elvira Benítez, am scribing for and in the presence of Dr. Ramos. Patient data External records reviewed:: [facility] previous records (I reviewed admission from 08/20/2024 through 08/22/2024 ) Clinical information provided by:: patient Social determinants that could affect healthcare access:: substance use (Marijuana, reports last using 1 week ago ) Patient has the following chronic illnesses:: Anxiety, episode of Torsades in 2022 How is presenting disease/condition affected by chronic disease/condition?: exacerbated by Evaluation data The following diagnostics were reviewed and interpreted by me:: lab results and EKG tracing(s) (Sinus rhythm, rate 96, NJ interval 149 ms, QRS duration 126 ms, QT/QTc 395/449 ms, no acute ST or T-wave changes, no STEMI.) Lab and/or radiology exams considered but not ordered:: None Interpretation Summary: As noted above Medications / Prescriptions Medications or Prescriptions considered but not ordered:: None Medication administrations:: Medication Administration History Discontinued Medications Diphenhydramine HCl (Diphenhydramine Inj 50 Mg/Ml Vial) 50 mg IV X1 ONE Stop: 08/31/24 09:18 Lorazepam (Lorazepam 2 Mg/Ml Vial) 2 mg IVP X1 ONE Stop: 08/31/24 09:18 Consultations Consultation(s) initiated? (list below): No Diagnosis Differential diagnosis anxiety: hyperventilation, panic disorder and acute anxiety Most likely diagnosis given after review of the tests above:: Anxiety Admission Indicated Admission indicated?: not indicated Admission Request Was there a request for admission?: No Disposition Plan Disposition Plan: Discharge Discharge Attestation Discharge Attestation: The patient and all family members were given an opportunity to ask questions and understood the discharge instructions. Discharge instructions specifically effects, indications for sooner follow up or return to the emergency department, and the expected course of current diagnosis. Patient condition: Stable Discharge Plan Plan Patient Disposition: HOME (Self Care) Prescriptions/Referrals Prescriptions/Med Rec: No Action alprazolam 0.5 mg tablet 0.5 mg PO BID PRN (Reason: anxiety) Qty: 6 0RF prochlorperazine maleate [Compazine] 5 mg tablet 5 mg PO TID PRN (Reason: nausea and vomiting) Qty: 30 0RF duloxetine 30 mg capsule,delayed release(DR/EC) 30 mg PO QDAY Qty: 30 0RF Referrals: Devaughn Ortega MD [Primary Care Provider] - In 1 week Problem List Clinical Impression: Anxiety Patient/Caregiver Discharge Instructions Education Materials: ED Anxiety Reaction Additional Instructions: Follow-up with your primary care doctor in 2 to 3 days for recheck. You can return to the emergency department sooner if symptoms worsen or if you notice any new, concerning issues. Print Language: Kittitian Stand Alone Forms: [employer] Award Info., Patient Portal Info Letter
[2024-08-31 09:30] VITALS: BMI 27.4
[2024-08-31] MEDS: DiphenhydrAMINE INJ 50 MG/ML VIAL IV (09:51)
[2024-08-31] MEDS: LORazepam 2 MG/ML VIAL IVP (09:51)
[2024-08-31 10:02] VITALS: BP 96/68; PULSE 95; RESP 22; TEMP 36.6; O2SAT 96
[2024-08-31 10:19] LABS: Basophils % (Auto) 0 % (0-2.5); Eosinophils % (Auto) 0 % (0-10); Hematocrit 43.6 % (36.0-46.0); Immature Granulocytes % (Auto) 0 % (0-0); Immature Granulocytes Auto 0.06 Thou/mm3 (0.00-0.00); Lymphocytes # (Auto) 2.2 Thou/mm3 (1.0-4.8); Lymphocytes % (Auto) 16 % (10-50); Mean Corpuscular HGB Conc 34.4 g/dl (31.0-37.0); Mean Corpuscular Hemoglobin 28.5 pg (25.0-35.0); Mean Corpuscular Volume 83 fL (80-100); Monocytes # (Auto) 0.6 Thou/mm3 (0.0-0.8); Monocytes % (Auto) 5 % (0-12); Neutrophils # (Auto) 10.7 Thou/mm3 (1.8-7.7); Neutrophils % (Auto) 79 % (37-80); Nucleated Red Blood Cell % 0 /100 WBC (0); Platelet Count 320 Thou/mm3 (140-440); RDW Standard Deviation 39.4 fL (36.4-46.3); Red Blood Count 5.27 Miln/mm3 (4.00-5.20); White Blood Count 13.6 Thou/mm3 (3.6-11.0)
[2024-08-31 10:40] LABS: Alanine Aminotransferase 7 U/L (10-49); Albumin, Serum 5.1 gm/dL (3.4-4.8); Albumin/Globulin Ratio 1.8 (1.2-2.2); Alkaline Phosphatase 70 U/L (46-116); Anion Gap 17 (7-16); Aspartate Amino Transferase 18 U/L (0-34); BUN/Creatinine Ratio 11 Ratio (12-20); Bilirubin,Total 0.7 mg/dL (0.3-1.2); Blood Urea Nitrogen 10 mg/dL (9-23); Calcium 10.1 mg/dL (8.3-10.6); Calcium (Corrected) 10.1 mg/dL (8.5-10.1); Carbon Dioxide 19.5 mMol/L (20.0-31.0); Chloride 104 mMol/L (98-107); Creatinine (Component) 0.9 mg/dL (0.6-1.3); Estimated Creatinine Clearance 75.1 mL/min (>60); Globulin 2.8 gm/dL (2.3-3.5); Glucose 161 mg/dL (74-106); Magnesium 1.8 mg/dL (1.6-2.6); Osmolality,Calculated 281 (275-295); Potassium 3.4 mMol/L (3.4-5.1); Sodium 140 mMol/L (136-145); Total Protein 7.9 gm/dL (5.7-8.2); eGFR > 60 See Note
[2024-08-31] MEDS: DIAZEPAM 5 MG TABLET 10 MG PO (11:55)
[2024-08-31 12:00] VITALS: BP 122/57; PULSE 80; RESP 19; TEMP 36.6; O2SAT 93
== END 2024-08-31 13:20 | disposition home or self-care (01) ==
PROVIDERS: Emergency Provider Emergency Medicine; PCP Family Medicine
DX: F41.9 Anxiety disorder, unspecified (principal); I45.89 Other specified conduction disorders
CPT/HCPCS: 36415; 80053; 83735; 85025; 93005; 96374; 99284; J1200; J2060; A9270

== ENCOUNTER 2024-09-01 13:19 | Outpatient (AMB) | payer BC, SELFPAY ==
[2024-09-01 13:28] VITALS: BP 128/83; PULSE 78; RESP 16; TEMP 36.8; O2SAT 97; BMI 24.4
--- NOTE | 2024-09-01 13:28 | PD.RESCLINIC ---
Vital Signs 09/01/24 13:28 Height 1.75 m Height Method Stated Weight 74.956 kg Weight Measurement Method Standing Scale BMI 24.4 BP 128/83 Blood Pressure Source Automatic Cuff Blood Pressure Location Left Upper Arm Position Sitting Respiration 16 Pulse 78 Pulse Source Monitor Temp 98.2 F Temp Source Temporal Artery Scan Pulse Oximetry (%) 97 Oxygen Delivery Method Room Air Allergies/Meds Allergies & Medications Allergies codeine Allergy (Severe, Verified 09/01/24 13:30) Hives Penicillins Allergy (Severe, Verified 09/01/24 13:30) Hives Medication Reconciliation alprazolam 0.5 mg tablet 0.5 mg PO BID PRN anxiety #6 tabs 07/10/24 [Rx Confirmed 09/01/24] duloxetine 30 mg capsule,delayed release 30 mg PO QDAY #30 caps 08/22/24 [Rx Confirmed 09/01/24] prochlorperazine maleate 5 mg tablet (Compazine) 5 mg PO TID PRN nausea and vomiting #30 tabs 08/22/24 [Rx Confirmed 09/01/24] propranolol 10 mg tablet 10 mg PO TID 09/01/24 [History Confirmed 09/01/24] MA Intake Visit Data Collection New Patient or Established: Established Patient (seen at [facility] within 3 years) Seen by Clinical Staff ONLY (RN/MA): No Pain Present Currently: No Pain scale:: 0 Pain Scale Used: Ren-Welch/Numerical Sales Order Coordinator Required: No PCP or OBGYN visit in last 3 months: No Hx Now: No Do You Feel Safe at Home: Yes Authorities Contacted: N/A Smoking Status Smoking Status: Never smoker Immunization / Flu Flu Vaccine in the Last 12 Months: No Flu Vaccine Exclusion Criteria: No Exclusion Criteria Past Medical History Past Medical History NEUROLOGIC: Negative Neurological Disorders CARDIAC: Positive Cardiac Disorders (episodes of Torsads in 2022); Negative Congestive Heart Failure RESPIRATORY: Negative Chronic Obstructive Pulmonary Disease (COPD) or Asthma GASTROINTESTINAL: Negative Gastrointestinal Disorders GENITOURINARY: Negative Genitourinary Disorders or Renal Disease ENDOCRINE: Negative Endocrine Disorders, Diabetes Mellitus Type 1 or Diabetes Mellitus Type 2 HEMATOLOGIC: Negative Blood Disorders or Sickle Cell Disease PSYCHO/SOCIAL: Positive Recreational Drug Use and Anxiety OTHER HISTORY: Positive Hospitalization; Negative Autoimmune Disease, Falls, Blood Transfusions or Anesthesia Reactions Family History FAMILY HISTORY: Positive Family Cancer Surgical History SURGICAL: Positive Lumpectomy and Tubal Ligation Social History SMOKING STATUS: Smoking status: Never smoker SECOND HAND EXPOSURE: second hand exposure: No ALCOHOL: Alcohol Intake: Former HOUSING: Housing: House LIVES WITH: Lives With: Spouse Patient Bria Deluna Social History Living Situation History Housing: House Housing Other:: Pt is from home Tobacco History Smoking Status: Never smoker Second Hand Smoke Exposure: No Alcohol History Alcohol Intake: Former Alcohol Intake Frequency Other:: quit about a year ago Substance Use History Substance Use: smokes Marijuana Domestic Abuse History Do You Feel Safe at Home: Yes Review of Systems Report any current symptoms Only answer those that you have currently: Past Medical History Past Medical History Have you ever been diagnosed with any of the following: Cardiology Problems Congestive Heart Failure: No Respiratory Problems Chronic Obstructive Pulmonary Disease (COPD): No Asthma: No Genital/Urinary Problems Renal Disease: No Endocrine Problems Diabetes Mellitus Type 1: No Diabetes Mellitus Type 2: No Blood Problems Sickle Cell Disease: No Psychologic Problems Recreational Drug Use: Yes Anxiety: Yes Other Problems Hospitalization: Yes Autoimmune Disease: No Falls: No Blood Transfusions: No Anesthesia Reactions: No History of Present Illness HPI Narrative Ms Van is a 63-year-old female with a past medical history of torsades de pointes s/p multiple attempts of cardioversion in 2022, breast lumpectomy in 2019, cyclical vomiting syndrome secondary to marijuana use, and recent hospitalization for intractable nausea and vomiting, presented with [facility] to establish primary care. Patient was recently hospitalized from August 21 - August 22 for cyclical vomiting syndrome, and was seen again in the ER on September 08 for similar symptoms. She was discharged home with Compazine and Duloxetine with strict instructions to stay off of marijuana. However patient had sudden episode of vomiting despite being off of marijuana for 10 days, which resolved with lorazepam x 1 in the ED. 09/01/2024: Patient presented for first time primary care visit, new to practice. Patient follows up with Cardiology outpatient who started her on prochlorperazine, despite being off of THC products for 10 days, she was recently seen in the ED on 08/31 for severe nausea and vomiting, which settled with 2mg Ativan IV 1 in the ED. patient endorses intermittent episodes of anxiety, which triggered her intractable vomiting. She is otherwise compliant with all her medications she states that prochlorperazine by itself does not control her symptoms of severe vomiting. We will add scopolamine patches to see if both working combination. Patient is also being prescribed Xanax 0.5 mg 10 tablets to be used as needed if Compazine and scopolamine combination does not control the nausea or vomiting. If it is cyclical vomiting syndrome, patient will probably respond best to Benadryl for benzodiazepine treatment. Anticipate improvement if she stays off of THC products. We will also increase her duloxetine dose to 30 mg twice a day. Patient also endorses insomnia, will restart previously used Ambien 5 mg nightly and reevaluate in 6 weeks. Review of Systems Review of Systems Narrative Review of Systems: GENERAL: Denies fevers/chills, diaphoresis. Insomnia, anxiety HEENT: Denies headache or visual/hearing changes. Denies nasal discharge. NEURO: Denies unusual weakness or difficulty speaking. CARDIO: Denies chest pain, has intermittent palpitations. PULM: Denies SOB, cough, wheezing. GI: Denies abdominal pain, episodes of intractable N/V, no C/D. Reports having BMs URO: Denies burning/itching/pain/urinary changes. STREAM CONTROL OFFICER: Denies menstrual changes, hot flashes. MSK/EXT/SKIN: Denies skeletal/muscle pain, changes in upper or lower extremities, itchiness, superficial skin chnages. PSYCH: Cooperative, pleasant mood & affect. The rest of the review of systems is otherwise negative. Objective/Exam Narrative Physical exam: Constitutional Alert, oriented x3 and sleep deprived HEENT Vision grossly intact. Patent nares. Trachea midline. Respiratory Chest normal on inspection and clear to auscultation bilaterally. Cardiovascular S1 and S2 audible, RRR. No murmurs or carotid bruit. No gross JVD. Abdominal Soft and non tender to palpation in all quadrants. BS + Genitourinary No bladder tenderness, no flank pain. Normal to palpation. Musculoskeletal Extremities tone within normal limits. No LE edema. Neurological CN II - XII grossly intact. Extremity motor and sensation grossly intact. Skin Warm, dry and intact. No apparent lesions. Psychiatric Patient has a good affect, is cooperative. Very anxious and stressed Assessment & Plan Diagnosis / Problem List (1) Intractable vomiting: Status: Acute Assessment & Plan: Cardiology outpatient who started her on prochlorperazine Patient has been off of THC products for 10 days In the ED on 08/31 severe nausea and vomiting settled with 2mg Ativan Plan: We will add scopolamine patches to see if both working combination, and lwo risk of QTc prolongation Xanax 0.5 mg 10 tablets to be used as needed if Compazine and scopolamine combination does not control the nausea or vomiting. If it is cyclical vomiting syndrome, patient will probably respond best to Benadryl for benzodiazepine treatment. Anticipate improvement if she stays off of THC products. (2) Hyposomnia, insomnia or sleeplessness associated with anxiety: Status: Acute Assessment & Plan: Patient also endorses insomnia On Duloxetin 30mg daily Plan: will restart previously used Ambien 5 mg nightly and reevaluate in 6 weeks Duloxetine increased to 30mg BID (3) Torsades de pointes: Status: Acute Assessment & Plan: Hx of TDP s/p multiple attempts of cardioversion in 2022 Plan: Cardiology outpatient following closely Next appointment in November 2024 Plan Follow up in September Office Procedures [facility] Level of Care Nursing/Assessment Patient Status: Established Patient Nursing Assessment/Reassessment: Medication Reconciliation, Update PMH in EMR and Vital Signs Coordination of Care: Complex Care and Chronic Disease 1-5, Consent,records obtained, informed consent, Education Simp Pt/Fam, Lab and Imaging orders and Staff clarify orders Established Patient Charge Established Patient Point Assignment: 100 Established Patient Point Charge: EP Level 3 (80-115)
== END 2024-09-01 15:03 | disposition home or self-care (01) ==
LOC: HODAHC 13:19
PROVIDERS: PCP Student in an Organized Health Care Education/Training Program; Referring Provider Student in an Organized Health Care Education/Training Program; Supervising Provider Internal Medicine; Visit Provider Student in an Organized Health Care Education/Training Program
DX: R11.10 Vomiting, unspecified (principal); F41.9 Anxiety disorder, unspecified; F51.05 Insomnia due to other mental disorder; I47.21 Torsades de pointes
CPT/HCPCS: 99213; G0463

== ENCOUNTER 2024-10-06 13:02 | Outpatient (AMB) | payer BC, SELFPAY ==
--- NOTE | 2024-10-06 13:02 | PD.RESCLINIC ---
Vital Signs 10/06/24 13:13 Height 1.75 m Height Method Stated Weight 76.43 kg Weight Measurement Method Standing Scale BMI 24.9 BP 102/63 Blood Pressure Source Automatic Cuff Blood Pressure Location Left Upper Arm Position Sitting Respiration 16 Pulse 72 Pulse Source Monitor Temp 98.3 F Temp Source Temporal Artery Scan Pulse Oximetry (%) 96 Oxygen Delivery Method Room Air Allergies/Meds Allergies & Medications Allergies codeine Allergy (Severe, Verified 10/06/24 13:14) Hives Penicillins Allergy (Severe, Verified 10/06/24 13:14) Hives Medication Reconciliation prochlorperazine maleate 5 mg tablet (Compazine) 5 mg PO TID PRN nausea and vomiting #20 tabs 09/01/24 [Rx Confirmed 10/06/24] scopolamine base 1 mg over 3 days transdermal patch 1 patch transdermal Q3D PRN nausea and vomiting #10 ea 09/01/24 [Rx Confirmed 10/06/24] Lactobacillus acidophilus 10 billion cell capsule 10,000 mmu cells PO BID 1 month #60 caps 09/14/24 [Rx Confirmed 10/06/24] alprazolam 0.25 mg tablet 0.25 mg PO QDAY PRN anxiety #10 tabs 10/06/24 [Rx] duloxetine 30 mg capsule,delayed release 30 mg PO BID 1 month #60 caps 10/06/24 [Rx] propranolol 10 mg tablet 10 mg PO BID 1 month #60 tabs 10/06/24 [Rx] zolpidem 5 mg tablet 2.5 mg (1/2 x 5 mg) PO QHS PRN insomnia #30 tabs 10/06/24 [Rx] MA Intake Visit Data Collection New Patient or Established: Established Patient (seen at [facility] within 3 years) Seen by Clinical Staff ONLY (RN/MA): No Pain Present Currently: No Pain scale:: 0 Pain Scale Used: Ren-Welch/Numerical Answering Service Agent Required: No PCP or OBGYN visit in last 3 months: Yes Hx Now: No Do You Feel Safe at Home: Yes Authorities Contacted: N/A Smoking Status Smoking Status: Never smoker Immunization / Flu Flu Vaccine in the Last 12 Months: No Flu Vaccine Exclusion Criteria: No Exclusion Criteria Past Medical History Past Medical History NEUROLOGIC: Negative Neurological Disorders CARDIAC: Positive Cardiac Disorders (episodes of Torsads in 2022); Negative Congestive Heart Failure RESPIRATORY: Negative Chronic Obstructive Pulmonary Disease (COPD) or Asthma GASTROINTESTINAL: Negative Gastrointestinal Disorders GENITOURINARY: Negative Genitourinary Disorders or Renal Disease ENDOCRINE: Negative Endocrine Disorders, Diabetes Mellitus Type 1 or Diabetes Mellitus Type 2 HEMATOLOGIC: Negative Blood Disorders or Sickle Cell Disease PSYCHO/SOCIAL: Positive Recreational Drug Use and Anxiety OTHER HISTORY: Positive Hospitalization; Negative Autoimmune Disease, Falls, Blood Transfusions or Anesthesia Reactions Family History FAMILY HISTORY: Positive Family Cancer Surgical History SURGICAL: Positive Lumpectomy and Tubal Ligation Social History SMOKING STATUS: Smoking status: Never smoker SECOND HAND EXPOSURE: second hand exposure: No ALCOHOL: Alcohol Intake: Former HOUSING: Housing: House LIVES WITH: Lives With: Spouse Patient Portal Mikie Social History Living Situation History Housing: House Housing Other:: Pt is from home Tobacco History Smoking Status: Never smoker Second Hand Smoke Exposure: No Alcohol History Alcohol Intake: Former Alcohol Intake Frequency Other:: quit about a year ago Substance Use History Substance Use: smokes Marijuana Domestic Abuse History Do You Feel Safe at Home: Yes Review of Systems Report any current symptoms Only answer those that you have currently: Past Medical History Past Medical History Have you ever been diagnosed with any of the following: Cardiology Problems Congestive Heart Failure: No Respiratory Problems Chronic Obstructive Pulmonary Disease (COPD): No Asthma: No Genital/Urinary Problems Renal Disease: No Endocrine Problems Diabetes Mellitus Type 1: No Diabetes Mellitus Type 2: No Blood Problems Sickle Cell Disease: No Psychologic Problems Recreational Drug Use: Yes Anxiety: Yes Other Problems Hospitalization: Yes Autoimmune Disease: No Falls: No Blood Transfusions: No Anesthesia Reactions: No History of Present Illness HPI Narrative Ms Van is a 63-year-old female with a past medical history of torsades de pointes s/p multiple attempts of cardioversion in 2022, breast lumpectomy in 2019, cyclical vomiting syndrome secondary to marijuana use, and recent hospitalization for intractable nausea and vomiting, presented with [facility] to establish primary care. Patient was recently hospitalized from August 21 - August 22 for cyclical vomiting syndrome, and was seen again in the ER on August 31 for similar symptoms. She was discharged home with Compazine and Duloxetine with strict instructions to stay off of marijuana. However patient had sudden episode of vomiting despite being off of marijuana for 10 days, which resolved with lorazepam x 1 in the ED. 09/01/2024: Patient presented for first time primary care visit, new to practice. Patient follows up with Cardiology outpatient who started her on prochlorperazine, despite being off of THC products for 10 days, she was recently seen in the ED on 08/31 for severe nausea and vomiting, which settled with 2mg Ativan IV 1 in the ED. patient endorses intermittent episodes of anxiety, which triggered her intractable vomiting. She is otherwise compliant with all her medications she states that prochlorperazine by itself does not control her symptoms of severe vomiting. We will add scopolamine patches to see if both working combination. Patient is also being prescribed Xanax 0.5 mg 10 tablets to be used as needed if Compazine and scopolamine combination does not control the nausea or vomiting. If it is cyclical vomiting syndrome, patient will probably respond best to Benadryl for benzodiazepine treatment. Anticipate improvement if she stays off of THC products. We will also increase her duloxetine dose to 30 mg twice a day. Patient also endorses insomnia, will restart previously used Ambien 5 mg nightly and reevaluate in 6 weeks. 10/06/2024: Presented for follow up visit. Patient was given re-fills for Duloxetine, Propanolol, Zolpidem for JANET use and 10 tablets of Xanax for PRN use. Patient has not had any episodes of N/V since starting scopolamine patches, she has 2 more refills on it. She has been in good health otherwise and denies use of any THC products. Her insomnia has improved remarkably with Ambien. Review of Systems Review of Systems Narrative Review of Systems: GENERAL: Denies fevers/chills, diaphoresis. Insomnia, anxiety - resolved HEENT: Denies headache or visual/hearing changes. Denies nasal discharge. NEURO: Denies unusual weakness or difficulty speaking. CARDIO: Denies chest pain, has intermittent palpitations PULM: Denies SOB, cough, wheezing. GI: Denies abdominal pain, episodes of intractable N/V - resolved, no C/D. Reports having BMs URO: Denies burning/itching/pain/urinary changes. QUALITY LEAD: Denies menstrual changes, hot flashes. MSK/EXT/SKIN: Denies skeletal/muscle pain, changes in upper or lower extremities, itchiness, superficial skin chnages. PSYCH: Cooperative, pleasant mood & affect. The rest of the review of systems is otherwise negative. Objective/Exam Narrative Physical exam: Constitutional Alert, oriented x4 and comfortable HEENT Vision grossly intact. Patent nares. Trachea midline. Scopolamine patch behind LT ear Respiratory Chest normal on inspection and clear to auscultation bilaterally. Cardiovascular S1 and S2 audible, RRR. No murmurs or carotid bruit. No gross JVD. Abdominal Soft and non tender to palpation in all quadrants. BS + Genitourinary No bladder tenderness, no flank pain. Normal to palpation. Musculoskeletal Extremities tone within normal limits. No LE edema. Neurological CN II - XII grossly intact. Extremity motor and sensation grossly intact. Skin Warm, dry and intact. No apparent lesions. Psychiatric Patient has a good affect, is cooperative. Assessment & Plan Diagnosis / Problem List (1) Intractable vomiting: Status: Acute Assessment & Plan: Cardiology outpatient who started her on prochlorperazine Patient has been off of THC products for 10 days In the ED on 08/31 severe nausea and vomiting settled with 2mg Ativan Plan: Continue scopolamine patches, low risk of QTc prolongation Xanax 0.5 mg 10 tablets to be used as needed if Compazine and scopolamine combination does not control the nausea or vomiting. If it is cyclical vomiting syndrome, patient will probably respond best to Benadryl then benzodiazapine. Anticipate continued resolution if she stays off of THC products. (2) Hyposomnia, insomnia or sleeplessness associated with anxiety: Status: Acute Assessment & Plan: Patient also endorses insomnia On Duloxetin 30mg qD -> BID Plan: will restart previously used Ambien 5 mg nightly and reevaluate in 6 weeks Continue Duloxetine 30mg BID (3) Torsades de pointes: Status: Acute Assessment & Plan: Hx of TDP s/p multiple attempts of cardioversion in 2022 Plan: Cardiology outpatient following closely. Next appointment in November 2024 Plan Ordered re-fills for Duloxetine, Propanolol, Zolpidem for JANET use Given 10 tablets of Xanax for PRN use No episodes of N/V since starting scopolamine patches, she has 2 more refills Follow up in 6 months Additional Assessment Internal Medicine Attending Note: Case discussed with and agree with note and management plan of Resident Physician as per Resident's Note above. Issues of concern for present visit are as follows: Follow-up visit. Chronic conditions reviewed. Has not had any episodes of nausea and vomiting. Utilizing scopolamine patches. Has avoided use of THC products. Insomnia better with Ambien. Needed refills provided today. Mychal Fairchild MD Physician Billing Established Patient Established Patient: E/M Level 3-CPT 32650 Office Procedures [facility] Level of Care Nursing/Assessment Patient Status: Established Patient Nursing Assessment/Reassessment: Medication Reconciliation, Update PMH in EMR and Vital Signs Coordination of Care: Complex Care and Chronic Disease 1-5, Consent,records obtained, informed consent, Education Simp Pt/Fam and Staff clarify orders Established Patient Charge Established Patient Point Assignment: 85 Established Patient Point Charge: EP Level 3 (80-115)
[2024-10-06 13:13] VITALS: BP 102/63; PULSE 72; RESP 16; TEMP 36.8; O2SAT 96; BMI 24.9
== END 2024-10-06 14:02 | disposition home or self-care (01) ==
LOC: HODAHC 13:02
PROVIDERS: PCP Student in an Organized Health Care Education/Training Program; Referring Provider Student in an Organized Health Care Education/Training Program; Supervising Provider Internal Medicine; Visit Provider Student in an Organized Health Care Education/Training Program
DX: Z76.0 Encounter for issue of repeat prescription (principal); G47.00 Insomnia, unspecified; F06.4 Anxiety disorder due to known physiological condition; I47.21 Torsades de pointes
CPT/HCPCS: 99213; G0463